=== PATIENT | female | born 1980 | race Caucasian/White ===

== ENCOUNTER → 2020-09-05 08:12 | Outpatient (BNVA) | payer OTHER, SELFPAY | PROVIDERS: PCP Family Medicine; Referring Provider Family Medicine; Visit Provider Physician Assistant | DX: E66.9 Obesity, unspecified (principal); Z68.35 Body mass index [BMI] 35.0-35.9, adult; Z88.8 Allergy status to other drugs, medicaments and biological substances; Z79.899 Other long term (current) drug therapy | CPT/HCPCS: 99212; Q3014 ==

== ENCOUNTER → 2020-09-19 08:13 | Outpatient (BNVA) | payer OTHER, SELFPAY | PROVIDERS: PCP Family Medicine; Visit Provider Physician Assistant | DX: E66.9 Obesity, unspecified (principal); Z68.35 Body mass index [BMI] 35.0-35.9, adult | CPT/HCPCS: Q3014 ==

== ENCOUNTER → 2020-10-10 08:11 | Outpatient (BNVA) | payer OTHER, SELFPAY | PROVIDERS: Visit Provider Dietitian, Registered | DX: Z76.89 Persons encountering health services in other specified circumstances (principal) ==

== ENCOUNTER → 2020-11-23 08:45 | Outpatient (BNVA) | payer OTHER, SELFPAY | PROVIDERS: Visit Provider Physician Assistant ==

== ENCOUNTER → 2021-02-15 10:58 | Outpatient (BNVA) | payer OTHER, SELFPAY | PROVIDERS: Visit Provider Physician Assistant | DX: E66.9 Obesity, unspecified (principal); R06.02 Shortness of breath; Z68.34 Body mass index [BMI] 34.0-34.9, adult | CPT/HCPCS: 99212 ==

== ENCOUNTER 2021-02-20 11:06 | Outpatient (REF) | payer OTHER, SELFPAY ==
--- NOTE | ~2021-02-20 | XR_ITS ---
EXAMINATION: XR CHEST, 2 VIEWS CLINICAL INFORMATION: R06.02 - Shortness of breath COMPARISON: 11/25/2019 TECHNIQUE: PA and lateral views of the chest were obtained. FINDINGS: Lungs are clear. No consolidation, pneumothorax, or pleural effusion. Cardiac and mediastinal contours are normal. Pulmonary vasculature is unremarkable. Trachea is midline. Osseous structures are unremarkable. XR/XR chest 2V IMPRESSION: Normal chest radiographs.
--- NOTE | 2021-02-20 11:16 | ECG_ITS ---
Test Reason : R06.02 SOB Blood Pressure : / mmHG Vent. Rate : 087 BPM Atrial Rate : 087 BPM P-R Int : 130 ms QRS Dur : 084 ms QT Int : 348 ms P-R-T Axes : 032 026 018 degrees QTc Int : 418 ms Sinus rhythm with frequent Premature ventricular complexes Otherwise normal ECG When compared with ECG of 25-NOV-2019 12:48, No significant change was found Referred By: Ramonita Faye Electronically Signed By:Tirso Szymanski
[2021-02-20 12:03] LABS: MANUAL DIFF FLAG NO
[2021-02-20 12:13] LABS: Basophils Percent Auto 0.5 % (0-2); Eosinophils Absolute Auto 0.1 X10*3/uL (0.0-0.4); Eosinophils Percent Auto 0.6 % (0-4); Hematocrit 42.8 % (37-47); Hemoglobin 14.3 g/dl (12.0-16.0); Imm Gran Abs Auto 0.02 X10*3/uL (0.00-0.03); Imm Gran Pct Auto 0.2 % (0.0-0.4); Lymphocytes Absolute Auto 2.6 X10*3/uL (1.2-4.9); Lymphocytes Percent Auto 29.8 % (20-40); Mean Corpuscular HGB Conc 33.4 g/dl (31.0-35.0); Mean Corpuscular Hemoglobin 29.3 pg (27.0-33.0); Mean Corpuscular Volume 87.7 fL (80-98); Mean Platelet Volume 11.7 fL (9.4-12.3); Monocytes Absolute Auto 0.7 X10*3/uL (0.1-1.2); Monocytes Percent Auto 7.5 % (2-11); Neutrophils Absolute Auto 5.3 X10*3/uL (2.0-8.3); Neutrophils Percent Auto 61.4 % (45-73); Platelet Count 332 X10*3/uL (160-400); Red Blood Count 4.88 X10*6/uL (4.20-5.50); Red Cell Distribution Width 12.3 % (11.0-16.0); White Blood Count 8.7 X10*3/uL (4.8-10.8)
[2021-02-20 12:44] LABS: Estimated Average Glucose 91 mg/dL; Hemoglobin A1c % 4.8 %
[2021-02-20 12:51] LABS: Alanine Aminotransferase 18 U/L (0-31); Albumin Level 3.9 g/dL (3.5-5.0); Alkaline Phosphatase 90 U/L (39-117); Anion Gap 12 (12-20); Aspartate Amino Transferase 15 U/L (5-31); Bilirubin Total 0.7 mg/dL (0.0-1.0); Blood Urea Nitrogen 10 mg/dL (9-16); C Reactive Protein 1.39 mg/dL (< or = 0.50); Calcium 9.4 mg/dL (8.4-10.2); Carbon Dioxide 24 mmol/L (22-29); Chloride 105 mmol/L (96-108); Cholesterol 255 mg/dL; Estimated Glomerular Filt Rate > 60; Glucose Fasting 91 mg/dL (60-99); HDL Cholesterol 36 mg/dL; Iron 132 mcg/dL (30-160); LDL Cholesterol Calculated 191 mg/dl; Percent Iron Saturation 46 % (15-50); Potassium 4.1 mmol/L (3.3-5.1); Sodium 137 mmol/L (135-145); Total Iron Binding Capacity 285 mcg/dL (228-428); Total Protein 7.5 g/dL (6.5-8.0); Triglycerides 140 mg/dL; Unsaturated Iron Binding 153 ug/dL
[2021-02-20 13:13] LABS: Vitamin B12 519 pg/mL (200-900)
[2021-02-20 13:14] LABS: Ferritin 163 ng/mL (10-250); TSH reflex Free T4 2.53 uIU/mL (0.32-4.0); Vitamin D 25-OH Total 22.7 ng/mL (>30)
[2021-02-21 09:16] LABS: Insulin Level Total 19.8 uIU/mL
[2021-02-22 13:46] LABS: Calcium (PTHI) 9.4 mg/dL (8.6-10.2); PTHI 72 pg/mL (14-64)
[2021-02-23 07:02] LABS: Zinc 114 mcg/dL (60-130)
[2021-02-25 03:21] LABS: Vitamin A 66 mcg/dL (38-98)
[2021-02-26 16:02] LABS: Vitamin B1 11 nmol/L (8-30)
== END 2021-02-20 11:07 | disposition home or self-care (01) ==
LOC: HO.LAB 11:06
PROVIDERS: PCP Family Medicine; Visit Provider Physician Assistant
DX: R06.02 Shortness of breath (principal); I49.3 Ventricular premature depolarization; E66.01 Morbid (severe) obesity due to excess calories
CPT/HCPCS: 36415; 71046; 80053; 80061; 82306; 82607; 82728; 82746; 83036; 83525; 83540; 83970; 84425; 84443; 84590; 84630; 85025; 86140; 93005

== ENCOUNTER → 2021-04-05 14:50 | Outpatient (BNVA) | payer OTHER, SELFPAY | PROVIDERS: PCP Family Medicine; Visit Provider Physician Assistant | DX: E66.9 Obesity, unspecified (principal); Z68.34 Body mass index [BMI] 34.0-34.9, adult | CPT/HCPCS: 99212 ==

== ENCOUNTER 2021-05-03 10:44 | Outpatient (REF) | payer OTHER, SELFPAY ==
[2021-05-04 14:47] LABS: H Pylori Breath Test NOT DETECTED (NOT DETECTED)
== END 2021-05-03 10:45 | disposition home or self-care (01) ==
LOC: HO.LAB 10:44
PROVIDERS: PCP Family Medicine; Visit Provider Physician Assistant
DX: F50.81 Binge eating disorder (principal); E66.9 Obesity, unspecified; Z68.33 Body mass index [BMI] 33.0-33.9, adult; E55.9 Vitamin D deficiency, unspecified; Z71.3 Dietary counseling and surveillance
CPT/HCPCS: 36415; 82306; 83013; 99212

== ENCOUNTER → 2021-05-31 10:05 | Outpatient (BNVA) | payer OTHER, SELFPAY | PROVIDERS: PCP Family Medicine; Visit Provider Surgery | DX: E66.9 Obesity, unspecified (principal); Z68.32 Body mass index [BMI] 32.0-32.9, adult | CPT/HCPCS: 99212 ==

== ENCOUNTER → 2021-07-12 12:34 | Outpatient (BNVA) | payer OTHER, SELFPAY | PROVIDERS: PCP Family Medicine; Visit Provider Surgery | DX: E66.9 Obesity, unspecified (principal); Z68.32 Body mass index [BMI] 32.0-32.9, adult | CPT/HCPCS: 99212 ==

== ENCOUNTER → 2021-08-09 08:57 | Outpatient (BNVA) | payer OTHER, SELFPAY | PROVIDERS: PCP Family Medicine; Visit Provider Surgery | DX: E66.9 Obesity, unspecified (principal); Z68.32 Body mass index [BMI] 32.0-32.9, adult | CPT/HCPCS: 99212 ==

== ENCOUNTER → 2021-09-11 08:11 | Outpatient (BNVA) | payer OTHER, SELFPAY | PROVIDERS: PCP Family Medicine; Visit Provider Physician Assistant Surgical | DX: E66.9 Obesity, unspecified (principal); Z3A.32 32 weeks gestation of pregnancy | CPT/HCPCS: 99212 ==

== ENCOUNTER → 2021-09-20 07:42 | Outpatient (BNVA) | payer OTHER, SELFPAY | PROVIDERS: PCP Family Medicine; Visit Provider Surgery ==

== ENCOUNTER → 2021-09-25 08:10 | Outpatient (BNVA) | payer OTHER, SELFPAY | PROVIDERS: PCP Family Medicine; Visit Provider Dietitian, Registered | DX: E66.9 Obesity, unspecified (principal); Z68.32 Body mass index [BMI] 32.0-32.9, adult | CPT/HCPCS: 97803 ==

== ENCOUNTER 2021-10-09 07:48 | Outpatient (REF) | payer OTHER, SELFPAY ==
--- NOTE | ~2021-10-09 | FL_ITS ---
EXAMINATION: XR FLUOROSCOPY UPPER GI WITH AIR CLINICAL INFORMATION: Obesity COMPARISON: None TECHNIQUE: Upper GI was performed using thin and thick barium and effervescent granules FINDINGS: Esophageal motility is normal. No hernia is seen. There is gastroesophageal reflux. The stomach and duodenum are normal-appearing. No fold thickening, mass, stricture or ulcer is seen. FLUOROSCOPY TIME: 0.6 minutes DOSE AREA PRODUCT: 7.8 Carter per centimeter squared. 17 saved fluoroscopic images and one overhead image FL/FL upper GI w air IMPRESSION: Gastroesophageal reflux otherwise unremarkable exam.
--- NOTE | ~2021-10-09 | US_ITS ---
EXAMINATION: US COMPLETE ABDOMEN WITH LIVER ELASTOGRAPHY CLINICAL INFORMATION: Obesity COMPARISON: 08/12/2014 TECHNIQUE: Real-time imaging of the abdominal viscera. Noninvasive ultrasound liver fibrosis assessment is performed using Maricel ElastPQ point quantification shear wave elastography (pSWE) with a C5-2 MHz transducer. Multiple elastography samples are obtained. FINDINGS: PANCREAS: Normal. The visualized pancreatic head and body are normal in appearance. The remainder of the pancreas is obscured from visualization by the overlying bowel gas. ABDOMINAL AORTA: The proximal, middle, and distal aortic segments are normal in caliber. INFERIOR VENA CAVA: Visualized portions are normal. LIVER: Normal. The liver demonstrates normal size, contour and echogenicity. No focal lesion or intrahepatic biliary duct dilatation. The right lobe measures 15.5 cm in length. The left lobe measures 10.6 cm in length. Portal flow is towards the liver (hepatopetal). Shear wave liver elastography median stiffness is 1.63 m/s (reference: normal median stiffness is 1.3 m/s or less). IQR/median stiffness to assess sampling precision is 0.08 (reference: good quality data set is IQR/median stiffness of 0.15 or less). GALLBLADDER: There is a gallbladder wall polyp noted measuring 0.5 x 0.3 x 0.4 cm. This was nonvisualized on the prior. The gallbladder is physiologically distended without evidence of stones, sludge, wall thickening or pericholecystic fluid. COMMON BILE DUCT: Normal in caliber measuring 0.4 cm in diameter. RIGHT KIDNEY: Normal. No hydronephrosis. No renal calculi or focal parenchymal lesions. The kidney measures 10.3 cm in maximum dimension. LEFT KIDNEY: Normal. No hydronephrosis. No renal calculi or focal parenchymal lesions. The kidney measures 10.6 cm in maximum dimension. SPLEEN: Normal. The spleen measures 9.3 cm in maximum dimension. FREE FLUID: None. US/US abdomen comp w elastography IMPRESSION: 1. Gallbladder wall polyp measuring up to 0.5 cm. This was not previously visualized. Suggest follow-up ultrasound in 6-12 months. 2. Liver elastography: In the absence of other known clinical signs, measurements rule out compensated advanced chronic liver disease. If there are known clinical signs, further testing may be needed for confirmation. REFERENCE: Society of Radiologists in Ultrasound Liver Stiffness Thresholds (2020): LIVER STIFFNESS THRESHOLDS: *Liver Stiffness equal or less than 1.3 m/s: High probability of being normal. *Liver Stiffness less than 1.7 m/s: In the absence of other known clinical signs, rules out compensated advanced chronic liver disease. *Liver Stiffness 1.7-2.1 m/s: Suggestive of compensated advanced chronic liver disease but need further test for confirmation. *Liver Stiffness over 2.1 m/s: Rules in compensated advanced chronic liver disease. *Liver Stiffness over 2.4 m/s: Suggestive of clinically significant portal hypertension. QUALITY OF DATA SET: *IQR/Median value equal or less than 0.15 implies a quality data set. *IQR/Median value over 0.15 implies a poor quality data set. SIGNIFICANT CHANGE FROM PRIOR EXAM: Significant change if liver stiffness measurement is 10% or greater from prior exam. OTHER CONSIDERATIONS: The stage of liver fibrosis may be overestimated in the setting of acute hepatitis, liver inflammation, elevated liver function tests, hepatic vascular congestion, obstructive cholestasis, non-fasting state, and infiltrative diseases such as amyloidosis and lymphoma. In some patients with NAFLD, the liver stiffness thresholds for compensated advanced chronic liver disease may be lower. In causes other than viral hepatitis and NAFLD, liver stiffness thresholds are not well established.
== END 2021-10-09 07:49 | disposition home or self-care (01) ==
LOC: HO.US 07:48
PROVIDERS: Visit Provider Surgery
DX: E66.9 Obesity, unspecified (principal); K21.9 Gastro-esophageal reflux disease without esophagitis; K82.4 Cholesterolosis of gallbladder
CPT/HCPCS: 74246; 76705; 76981

== ENCOUNTER → 2021-10-11 07:36 | Outpatient (BNVA) | payer OTHER, SELFPAY | PROVIDERS: PCP Family Medicine; Visit Provider Surgery | DX: E66.9 Obesity, unspecified (principal); Z68.32 Body mass index [BMI] 32.0-32.9, adult; G47.33 Obstructive sleep apnea (adult) (pediatric); I10 Essential (primary) hypertension | CPT/HCPCS: J2250; J3010 ==

== ENCOUNTER 2021-10-24 06:02 | Inpatient (IN) | payer OTHER, SELFPAY ==
[2021-10-15 13:39] VITALS: BMI 32.5
[2021-10-18 07:48] LABS: MANUAL DIFF FLAG NO
[2021-10-18 08:42] LABS: Basophils Percent Auto 0.4 % (0-2); Eosinophils Absolute Auto 0.2 X10*3/uL (0.0-0.4); Eosinophils Percent Auto 2.2 % (0-4); Hematocrit 40.8 % (37.0-47.0); Hemoglobin 13.3 g/dl (12.0-16.0); Imm Gran Abs Auto 0.02 X10*3/uL (0.00-0.03); Imm Gran Pct Auto 0.3 % (0.0-0.4); Lymphocytes Absolute Auto 2.3 X10*3/uL (1.2-4.9); Lymphocytes Percent Auto 29.4 % (20-40); Mean Corpuscular HGB Conc 32.6 g/dl (31.0-35.0); Mean Corpuscular Hemoglobin 29.5 pg (27.0-33.0); Mean Corpuscular Volume 90.5 fL (80.0-98.0); Mean Platelet Volume 11.6 fL (9.4-12.3); Monocytes Absolute Auto 0.7 X10*3/uL (0.1-1.2); Neutrophils Absolute Auto 4.5 x10*3/uL (2.0-8.3); Neutrophils Percent Auto 58.7 % (45-73); Platelet Count 268 X10*3/uL (160-400); Red Blood Count 4.51 X10*6/uL (4.20-5.50); Red Cell Distribution Width 12.5 % (11.0-16.0); White Blood Count 7.7 X10*3/uL (4.8-10.8)
[2021-10-18 08:49] LABS: Estimated Average Glucose 97 mg/dL
[2021-10-18 08:51] LABS: Prothrombin Time 11.3 SEC (9.9-13.0)
[2021-10-18 08:54] LABS: Partial Thromboplastin Time 34.5 SEC (24.1-38.0)
[2021-10-18 09:13] LABS: Alanine Aminotransferase 21 U/L (0-31); Albumin Level 3.8 g/dL (3.5-5.0); Alkaline Phosphatase 74 U/L (39-117); Anion Gap 11 (12-20); Aspartate Amino Transferase 22 U/L (5-31); Bilirubin Total 0.3 mg/dL (0.0-1.0); Blood Urea Nitrogen 15 mg/dL (9-16); C Reactive Protein 1.34 mg/dL (< or = 0.50); Calcium 9.2 mg/dL (8.4-10.2); Carbon Dioxide 23 mmol/L (22-29); Chloride 109 mmol/L (96-108); Cholesterol 244 mg/dL; Creatinine Clr Calc Pharmacy 97.4; Estimated Glomerular Filt Rate > 60; Glucose Random 92 mg/dL (60-115); HDL Cholesterol 31 mg/dL; LDL Cholesterol Calculated 187 mg/dl; Potassium 4.4 mmol/L (3.3-5.1); Sodium 139 mmol/L (135-145); Total Protein 7.4 g/dL (6.5-8.0); Triglycerides 130 mg/dL
[2021-10-18 09:34] LABS: Insulin 15 uU/mL (2-29); TSH reflex Free T4 2.26 uIU/mL (0.32-4.0)
--- NOTE | 2021-10-19 23:56 | P.HPSUR_ITS ---
Pre-Procedural Eval Section A Date of Service: 10/19/21 The patient is an INPATIENT: Yes The History & Physical has been completed within 30 days and I have reviewed it.: No Section B Chief Complaint: obesity Relevant Family History (Specify if Yes): No Relevant Social History: None Present Medications: None Medical History: No relevant PMH History of Previous Operations: No relevant previous surgery Allergies: Allergies Allergy/AdvReac Type Severity Reaction Status Date / Time prochlorperazine Allergy Intermediate jittery Verified 10/15/21 10:34 [From Compazine] Review of Systems Sugical H&P ROS: Negative: Constitution, Cardiovascular, Respiratory, Neurological, Psychiatric, Hem-Onc, Allergic/Immunologic, Gastrointestinal, Genitourinary, Musculoskeletal, Integumentary, Endocrine and Eyes/Ears/Nos e/Throat Exam Surgical H&P Exam: Normal: HEENT, Normal: Heart, Normal: Lungs, Normal: Extremities, Normal: Abdomen, Normal: Skin and Normal: Neurological Plan Diagnosis/Plan: Unchanged I have reviewed the history and physical and performed a pertinent physical examination on my patient. No changes have occurred unless specified.
--- NOTE | 2021-10-23 10:15 | P.CONAN_ITS ---
Documented by User: Magdalena Pimentel NP 10/23/21 10:17 HPI - Anesthesia Eval Consult details Narrative: 41yo F for Gastrectomy Sleeve,EGD,possible diaphragmatic hernia,possible ventral hernia,possible open *No blood products d/t methodist belief* [facility] Active Problems Active Problems: All Active Problems (Updated 10/15/21 @ 13:42 by Soheila Rosales RN) BMI 35.0-35.9,adult (Acute) Binge eating disorder (Acute) BMI 33.0-33.9,adult (Acute) BMI 32.0-32.9,adult (Acute) Hypertension (Acute) PRANAY (obstructive sleep apnea) (Acute) Obesity (BMI 30-39.9) (Acute) History of alcohol dependence (Acute) ADHD (Acute) Anxiety (Acute) Vitamin D deficiency (Acute) Arthritis (Acute) Past Medical History Medical History (Updated 10/15/21 @ 13:42 by Soheila Rosales RN) ADHD Anxiety Arthritis Carpal tunnel syndrome COVID-19 vaccine series completed Depression GERD (gastroesophageal reflux disease) History of alcohol dependence Hyperlipidemia Obesity (BMI 30-39.9) PRANAY (obstructive sleep apnea) Patient is Congregational PVC (premature ventricular contraction) Tennis elbow Vitamin D deficiency Family History Family History Father Depression Mother Hypothyroidism Diabetes Brother No problems noted. Brother No problems noted. Brother No problems noted. Brother No problems noted. Brother No problems noted. Sister No problems noted. Sister No problems noted. Sister No problems noted. Daughter No problems noted. Daughter No problems noted. Surgical History Surgical History (Updated 10/15/21 @ 13:38 by Soheila Rosales RN) Hx of section Hx of local excision of skin lesion Social History Social History Household Members Other:: 2 children-oldest 16 y.o. 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 If so, by whom?: No Are you DNR?: No Advance Directives: No Advance Directives Information Provided: Yes (informational brochure mailed) Advance Directives on File: No Recently lost weight without trying: No Eating poorly because of decreased appetite: No Nutrition Risks: No Nutritional Risk Patient : No FDLMP: N/A due to BCP : No Poor oral hygiene: No Meds Allergies Allergy/AdvReac Type Severity Reaction Status Date / Time prochlorperazine Allergy Intermediate jittery Verified 10/15/21 10:34 [From Compazine] Home Medications Medication Instructions Recorded Confirmed Last Taken Type L norgest/E estradiol-E estrad 1 tab PO DAILY 08/01/20 10/15/21 Unknown History 0.15 mg-30 mcg (84)/10 mcg(7) tabs,3mos (Seasonique) lorazepam 0.5 mg tablet 0.5 mg PO DAILY PRN 08/01/20 10/15/21 Unknown History melatonin 5 mg capsule 5 mg PO BEDTIME 02/15/21 10/15/21 Unknown History venlafaxine 150 mg 150 mg PO DAILY 02/15/21 10/15/21 Unknown History capsule,extended release 24 hr isotretinoin 40 mg capsule 40 mg PO BID 09/20/21 10/15/21 Unknown History (Accutane) pregabalin 50 mg capsule (Lyrica) 50 mg PO BID 10/11/21 10/15/21 Unknown History dextroamphetamine-amphetamine ER 20 mg PO QAM 10/15/21 10/15/21 Unknown History 20 mg 24hr capsule,extend release Exam Exam Date and Time: October 23, 2021 1015 Height,Weight and Vital Signs: Height 5 ft 2 in Weight 80.739 kg Pertinent Lab Results Pertinent Lab Results: Laboratory Tests 10/18/21 10/18/21 10/18/21 07:40 07:40 07:40 WBC 7.7 RBC 4.51 Hgb 13.3 Hct 40.8 MCV 90.5 MCH 29.5 MCHC 32.6 RDW 12.5 Plt Count 268 MPV 11.6 Immature Gran % (Auto) 0.3 Neut % (Auto) 58.7 Lymph % (Auto) 29.4 [place] % (Auto) 9.0 Eos % (Auto) 2.2 Baso % (Auto) 0.4 Lymph # (Auto) 2.3 [place] # (Auto) 0.7 Eos # (Auto) 0.2 Baso # (Auto) 0.0 Abs Immat Gran (auto) 0.02 Absolute Neuts (auto) 4.5 Absolute Nucleated RBC 0.000 Nucleated RBC % (auto) 0.0 PT 11.3 INR 1.0 APTT 34.5 Sodium 139 Potassium 4.4 Chloride 109 H Carbon Dioxide 23 Anion Gap 11 L BUN 15 Creatinine 0.74 Estim Creat Clear Calc 97.4 Estimated GFR > 60 Random Glucose 92 Estimat Average Glucose Hemoglobin A1c % Insulin Level 15 Calcium 9.2 Total Bilirubin 0.3 AST 22 D ALT 21 Alkaline Phosphatase 74 C-Reactive Protein 1.34 H Total Protein 7.4 Albumin 3.8 Triglycerides 130 Cholesterol 244 LDL Cholesterol, Calc 187 HDL Cholesterol 31 TSH 2.26 Blood Type Antibody Screen 10/18/21 10/18/21 07:40 07:40 WBC RBC Hgb Hct MCV MCH MCHC RDW Plt Count MPV Immature Gran % (Auto) Neut % (Auto) Lymph % (Auto) [place] % (Auto) Eos % (Auto) Baso % (Auto) Lymph # (Auto) [place] # (Auto) Eos # (Auto) Baso # (Auto) Abs Immat Gran (auto) Absolute Neuts (auto) Absolute Nucleated RBC Nucleated RBC % (auto) PT INR APTT Sodium Potassium Chloride Carbon Dioxide Anion Gap BUN Creatinine Estim Creat Clear Calc Estimated GFR Random Glucose Estimat Average Glucose 97 Hemoglobin A1c % 5.0 Insulin Level Calcium Total Bilirubin AST ALT Alkaline Phosphatase C-Reactive Protein Total Protein Albumin Triglycerides Cholesterol LDL Cholesterol, Calc HDL Cholesterol TSH Blood Type A Positive Antibody Screen NEGATIVE Narrative Narrative: EKG 01/2021 Vent. Rate : 087 BPM ? ? Atrial Rate : 087 BPM ?? P-R Int : 130 ms? QRS Dur : 084 ms ? ? QT Int : 348 ms ? ? ? P-R-T Axes : 032 026 018 degrees ?? QTc Int : 418 ms ? Sinus rhythm with frequent Premature ventricular complexes Otherwise normal ECG When compared with ECG of 25-NOV-2019 12:48, No significant change was found Assessment and Plan Assessment Anesthesia Assessment: Chart Reviewed Documented by User: Car Tan 10/24/21 09:35 HPI - Anesthesia Eval Consult details Narrative: 41yo F for Gastrectomy Sleeve,EGD,possible diaphragmatic hernia,possible ventral hernia,possible open Discussed transfusion , patient will accept blood products as a last resort if needed . [facility] Past Medical History Medical History (Updated 10/15/21 @ 13:42 by Soheila Rosales RN) ADHD Anxiety Arthritis Carpal tunnel syndrome COVID-19 vaccine series completed Depression GERD (gastroesophageal reflux disease) History of alcohol dependence Hyperlipidemia Obesity (BMI 30-39.9) PRANAY (obstructive sleep apnea) Patient is Congregational PVC (premature ventricular contraction) Tennis elbow Vitamin D deficiency Functional capacity: independent ambulation Family History Family History Father Depression Mother Hypothyroidism Diabetes Brother No problems noted. Brother No problems noted. Brother No problems noted. Brother No problems noted. Brother No problems noted. Sister No problems noted. Sister No problems noted. Sister No problems noted. Daughter No problems noted. Daughter No problems noted. Family history of problems with anesthesia: Yes (Sister possible difficult airway ) Surgical History Surgical History (Updated 10/15/21 @ 13:38 by Soheila Rosales RN) Hx of section Hx of local excision of skin lesion History of Problems with Anesthesia: No Social History Social History Household Members Other:: 2 children-oldest 16 y.o. 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 If so, by whom?: No Are you DNR?: No Advance Directives: No Advance Directives Information Provided: Yes (informational brochure mailed) Advance Directives on File: No Recently lost weight without trying: No Eating poorly because of decreased appetite: No Nutrition Risks: No Nutritional Risk Patient : No FDLMP: N/A due to BCP : No Poor oral hygiene: No Meds Allergies Allergy/AdvReac Type Severity Reaction Status Date / Time prochlorperazine Allergy Intermediate jittery Verified 10/15/21 10:34 [From Compazine] Home Medications Medication Instructions Recorded Confirmed Last Taken Type L norgest/E estradiol-E estrad 1 tab PO DAILY 08/01/20 10/15/21 Unknown History 0.15 mg-30 mcg (84)/10 mcg(7) tabs,3mos (Seasonique) lorazepam 0.5 mg tablet 0.5 mg PO DAILY PRN 08/01/20 10/15/21 Unknown History melatonin 5 mg capsule 5 mg PO BEDTIME 02/15/21 10/15/21 Unknown History venlafaxine 150 mg 150 mg PO DAILY 02/15/21 10/15/21 Unknown History capsule,extended release 24 hr isotretinoin 40 mg capsule 40 mg PO BID 09/20/21 10/15/21 Unknown History (Accutane) pregabalin 50 mg capsule (Lyrica) 50 mg PO BID 10/11/21 10/15/21 Unknown History dextroamphetamine-amphetamine ER 20 mg PO QAM 10/15/21 10/15/21 Unknown History 20 mg 24hr capsule,extend release Exam Airway Mallampati Class: II TM Dist: >3cm Neck ROM: Full Loose/Missing/Broken Teeth: Yes Heart: rrr Lungs: bl breath sounds Assessment and Plan Final Anesthetic Review Family History of Problems with Anesthesia: Yes (Sister possible difficult airway ) History of Problems with Anesthesia: No NPO: Yes ASA Class: III Final Preanesthetic Review: Anes Risks/Benef Reviewed Patient Risk: Intermediate Procedure Risk: Intermediate Anesthetic Plan Anesthetic Plan: GA Disposition: Standard PACU
[2021-10-24] VITALS (17 sets, daily range): BP systolic 123–161; BP diastolic 74–96; PULSE 73–98; RESP 15–20; TEMP 36.1–37; O2SAT 95–100
[2021-10-24 06:29] LABS: UPreg QC Valid YES; Urine Pregnancy NEGATIVE (NEGATIVE)
[2021-10-24] MEDS: Lactated Ringers 1,000 ML 999 ML IV (06:30)
[2021-10-24 06:44] LABS: COVID-19 Test Negative (Negative); IDNOW Serial# 9DD0AD1C
--- NOTE | 2021-10-24 10:13 | P.BOP_ITS ---
Brief Operative Note Date of Service: 10/24/21 Pre-op diagnosis: Severe obesity with comorbidities Post-op diagnosis: same Procedure: INITIAL PATIENT BMI ON PRESENTATION AT OUR OFFICE: 36.4 kg/m2 LAST BMI BEFORE SURGERY: 32.4 kg/m2 COMORBIDITIES: ADHD, GERD, sleep apnea, acne, depression, anxiety, insomnia, hyperlipidemia, DJD, gallbladder polyp The patient participated in an intensive weekly lifestyle ?intervention and exercise program during which the patient ?has lost between the initial office visit and the last preoperative visit 23 lbs, or 11.57% of initial actual body weight. The patient met the BMI-criteria for bariatric surgery based on the BMI on initial presentation. The patient should not be penalized for achieving such weight loss because ?it is not sustainable long-term without surgical intervention and it was achieved in preparation for bariatric surgery ?under my direction and based on my published research ([email or web address] and? [email or web address])[email or web address]/pdf ) ?that a 10% preoperative weight loss improves long-term weight loss after surgery and reduces perioperative complications.? Insurance carriers such as [facility] have endorsed my recommendations ?and have included in their policies criteria to include a 10% preoperative weight loss requirement. PROCEDURE: Esophago-gastroscopy, laparoscopic sleeve gastrectomy and laparoscopic gastropexy INDICATIONS: This is a 41 year-old female who was electively scheduled for laparoscopic, possibly open sleeve gastrectomy. The risks and complications of the procedure were discussed with the patient in advance, particularly the possibility of ; pulmonary embolism; staple line leak; bleeding; GERD; cardiac, pulmonary, or renal complications; as well as long-term problems such as insufficient weight loss, vitamin deficiency, strictures, or ulcers. The patient understood all the risks, and was in agreement to proceed with surgery. DESCRIPTION OF PROCEDURE: After informed consent was obtained from the patient, the patient was given preoperative antibiotics, and was transferred to the operating room. After successful induction of general anesthesia, pneumatic compressive devices were placed on both lower extremities. An upper endoscopy was performed next. The oropharynx and esophagus appeared to be within normal limits. There was no diaphragmatic hernia present consistent with the findings of the preoperative upper GI. The stomach was entered. Then after all fluid and air were suctioned and the stomach was fully decompressed, the scope was withdrawn and secured in the mid esophagus. The patient was then prepped and draped in the usual sterile manner, and abdominal access was established at the right upper quadrant with the Jude technique. A 12 mm blunt port was inserted, and the abdomen was insufflated with CO2 to a pressure of 15 mmHg. Under direct visualization, additional ports were placed, specifically two 5 mm Versi-step ports to the left upper quadrant, and a 5 mm Versi-Step port to the right upper quadrant. 1% lidocaine plain was used to infiltrate all port sites as well as all fascia defects. Following that, the patient was placed in a steep reverse Trendelenburg position. An additional 5 mm port was placed to the right flank for the Mediflex retractor that was used to retract the left lobe of the liver. The gastro-esophageal fat pad was opened with the ultrasonic device (Thunderbeat, Olympus) and the anterior esophagus and hiatus were exposed. The angle of His was opened with the ultrasonic device the fundus of the stomach from any diaphragmatic and splenic attachments. I then opened the gastrocolic ligament between the transverse colon and the greater curvature of the stomach with the ultrasonic device to enter the lesser sac and facilitate the ligation of the short gastric vessels. I started at a mid-point along the greater curvature and using the Thunderbeat, all short gastric vessels were divided all the way to the angle of His until the left trevor was completely dissected at its entirety. I then divided the gastro-colic ligament distally to a distance of about 3-4 cm proximal to the esophagus.? The stomach was then divided transversely with one Endo RENEA-45 purple, two RENEA- 45 orange loads and three RENEA-60 articulating orange loads using the AEON stapler and loads. Every effort was made that the gastric sleeve had a tubular shape and an even caliber throughout. Once the sleeve resection was completed, the staple line of the gastric sleeve was reinforced with Hemoclips. The resected stomach was retrieved without difficulty from the Jude port. A gastropexy was then performed in order to prevent postoperative GERD and partial gastric volvulus. Several interrupted 2.0 Surgidac sutures were placed between the sleeve's staple line and the previously divided greater omentum and gastro-colic ligament using the Endo-Stitch device. ?An upper endoscopy was performed. There was no narrowing at the GE junction. The scope was easily advanced all the way to the pylorus which was clearly visualized. There was no narrowing anywhere and the sleeve's caliber was even throughout. The sleeve's staple line was inspected and there was no evidence of ischemia, bleeding or dehiscence. At that point the gastroscope was withdrawn from the patient?s mouth while we were decompressing the bowel and the stomach from any remaining air. I looked into the lesser sac to see how the sleeve was situating and it was situating well. There was no bleeding from the staple line, spleen, or short gastric vessels. The Mediflex retractor was removed, and the undersurface of the liver was inspected and there was no bleeding. The patient was placed in supine position. I closed the fascial defect of the 12 mm port site with a figure of eight #1 Polysorb suture. Then 100 cc 0.25 % Marcaine plain with 10 mg of Dexamethasone were used to infiltrate the fascial closure as well as all skin incisions. At this point, the abdomen was deflated, all ports were removed under direct vision, and no bleeding was noted from any of the port sites. The skin incisions were irrigated with saline and were closed with 4-0 absorbable monofilament sutures. Steri-Strips and OpSites were used to cover all incisions. The patient was extubated and was transferred in stable condition to the recovery room for further care. I was present and performed all aldana parts of the procedure. Ms. Zurita was the engineer first assistant. There were no residents to assist with this case. Rangel Howard MD, PhD, FACS Surgeon: Eddie Howard MD Anesthesia: GETA, local and other (TAP block) Was an Guitar Repair Technician used for this Procedure?: Yes Guitar Repair Technician: Abel Barillas Estimated blood loss (mL): 10 IV fluids (mL): 2,800 Urine output (mL): 0 (No Dasilva to record) Pathology: other (Stomach) Condition: stable Disposition: PACU
--- NOTE | 2021-10-24 10:21 | P.DS_ITS ---
DS: Providers Provider Date of Service: 10/25/21 Date of admission: 10/24/21 06:02 Primary care physician: Unknown Physician DS: Summary Hospital Course Hospital Course: ADMITTING DIAGNOSIS: morbid obesity, htn, ADHD, depression, anxiety, PRANAY ? DISCHARGE DIAGNOSIS: same, s/p laparoscopic sleeve gastrectomy ? PAST SURGICAL HISTORY: cesarian section ? PROCEDURE: upper endoscopy, laparoscopic sleeve gastrectomy ? DISCHARGE SUMMARY: ? History of Present Illness: ? The patient is a?41 year-old woman with a BMI of?35.5 kg/m2 and associated co-morbidities as described above. The patient had extensive work-up,lost?21.6 lbs preoperatively and was electively scheduled for laparoscopic, possible open sleeve gastrectomy and gastropexy. Risks and complications of the surgery were discussed with the patient in advance, particularly the possibility of , pulmonary embolism, anastomotic leak, bleeding, bowel injury, GERD, cardiac, renal or pulmonary complications. The patient understood all the risks and was in agreement with the surgical plan. ? Hospital Course: ? The patient underwent an uneventful laparoscopic sleeve gastrectomy with gas tropexy on the day of admission. Postoperatively, the patient was transferred to the surgical floor. The patient received IV Acetaminophen and IV dilaudid for pain control. Patient was started on bariatric phase 1 diet POD #0. On postoperative day one, the patient was feeling well without nausea, vomiting, fevers, or tachycardia. The patient had some mild incisional pain and the abdomen was soft. ? On the morning of postoperative day one, the patient was continued on 1 ounce of water or ice every half hour. During the day, the patient did fairly well, having some incisional pain, but able to ambulate adequately and to tolerate liquids well. ? Since the patient is doing well, we decided that the patient was ready to be discharged. The patient was given instructions to follow-up with me next week and to call my office for any fever over 101, persistent abdominal pain, nausea, vomiting, GERD, symptoms of DVT such as calf tenderness, or leg swelling, or pulmonary embolism such as chest pain or shortness of breath. The patient was also instructed to drink 40-60 ounces of liquids per day using the 1-ounce cups. The patient had been given prescriptions for Tylenol for pain, Zofran prn for nausea, and pantoprazole and carafate previously. The patient was encouraged to ambulate and use the incentive spirometer. The patient was allowed to shower, but no baths, and encouraged to stay active at home. All of these instructions were given to the patient personally. All questions were answered and the patient understood all instructions, the instructions were also given to the patient in print. Status at Discharge Functional status at discharge: independent ambulation Time Spent with Patient Time attestation: Total time spent providing and/or coordinating discharge services: Discharge coordination time: Less than 30 minutes Quality: Stroke Does the patient have a stroke diagnosis?: No Physical Exam Vital Signs: Vital Signs: Last Vital Signs Temp 97.5 F 10/24/21 10:11 Pulse 79 10/24/21 10:16 Resp 16 10/24/21 10:16 BP 128/74 10/24/21 10:16 Pulse Ox 100 10/24/21 10:16 BMI result Body Mass Index 32.5 DS: Data Data Completed and Pending Pending studies at discharge: Pending at discharge 10/24/21 09:53 Surgical [PTH] Routine Labs on day of discharge: Laboratory Results - last 24 hr 10/24/21 10/24/21 06:10 06:10 Urine Test NEGATIVE COVID-19 ([facility]) Negative COVID-19 Clin Com See Note Discharge Plan Discharge Patient Disposition: Home, Self-Care Discharge Diagnosis: s/p laparoscopic sleeve gastrectomy Referrals: Physician,Unknown J [Primary Care Provider] - 1 Week Discharge Medications: Continued dextroamphetamine-amphetamine 20 mg capsule,extended release 24hr 20 mg PO QAM RF: 0 venlafaxine 150 mg capsule,extended release 24hr 150 mg PO DAILY RF: 0 lorazepam 0.5 mg tablet 0.5 mg PO DAILY PRN (Reason: Anxiety) RF: 0 pantoprazole 40 mg tablet,delayed release (DR/EC) 40 mg PO DAILY Qty: 30 RF: 2 sucralfate 100 mg/mL suspension 10 ml PO BID Qty: 400 RF: 2 ondansetron HCl [Zofran] 4 mg tablet 4 mg PO Q12H Qty: 20 RF: 0 Held melatonin 5 mg capsule 5 mg PO BEDTIME RF: 0 Hold Instructions: until discussed with Dr Lee Guerra norgest/e.estradiol-e.estrad [Seasonique] 0.15 mg-30 mcg (84)/10 mcg (7) tablets,dose pack,3 month 1 tab PO DAILY RF: 0 Hold Instructions: until discussed with Dr Howard isotretinoin [Accutane] 40 mg capsule 40 mg PO BID RF: 0 Hold Instructions: until discussed with Dr Howard pregabalin [Lyrica] 50 mg capsule 50 mg PO BID RF: 0 Hold Instructions: unitl discussed with Dr Howard Discontinued hydrochlorothiazide 12.5 mg tablet 12.5 mg PO DAILY Qty: 30 RF: 2 polyethylene glycol 3350 [Miralax] 17 gram powder in packet 17 g PO DAILY Qty: 14 RF: 0 No Action hydrochlorothiazide 12.5 mg capsule 12.5 mg PO DAILY RF: 0 Discharge Orders: Discharge Order (Routine); Ordered 10/25/21 Ordered By: Iris Zurita Activity on Discharge: No heavy lifting Stand Alone Forms: Patient Portal Discharge page Care Plan Goals: weight loss Health Concerns: obesity Plan of Treatment: No tub baths, sex or returning to work until discussed at first post op appointment. No exercise, alcohol, tobacco or illegal drug use. Continue to use incentive spirometer hourly while awake. Walk in home for 5- 10 minutes every 2 hours during the first week. Follow all instructions in the bariatric handbook and call with any questions.Discharge Instructions 1. Please call your doctor or come back to the emergency room should any new symptoms arise. 2. You will receive a courtesy call from [facility] 24-48 hours after discharge. 3. Activity: abstain from alcohol, practice limited stair climbing, no bending, no driving, no exercise, no illicit substances, no lifting, no sex, no tub bath, no work. 4. Diet: continue as discussed with Dr. Howard. 5. Dressing Change/Wound Care: Your incision is covered by clear bandages and guaze underneath. If the area is tender, you may apply an ice pack for short intervals (no more than 20 minutes on, followed by at least 20 minutes off). Do not apply heat. Do not use creams, lotions, or topical antibiotics unless instructed to do so by your surgeon. These can cause infection or allergic reaction. 6. Call your doctor if: - Your temperature exceeds 101.5 F - You experience excessive pain or swelling - You have an unexpected reaction to medication - You have excessive bleeding - You experience continued vomiting/nausea - Your incision begins to separate - Your incision shows signs of infection such as increased redness, swelling, excessive pain, heat, or drainage (light blood or clear fluid is normal) 7. General instructions: No lifting greater than 5 lbs for the next 4 weeks. No driving within 24 hours of taking narcotic pain medications. If you do not move your bowels in the next 2 days, please take milk of magnesia over the counter. Please follow the post op diet and do not advance your diet until you are seen in the office in about 2 weeks. Please walk around your home every hour or two to prevent blood clots from forming in your legs. You do not need to wake from sleeping to walk. Please sleep in a bed or couch to prevent kinking at the hips and knees. Please take your incentive spirometer (your lung irrigation manager) home with you and use it for the next few days to prevent pneumonias. You may shower, no hot tubs, baths or swimming pools. Please call the office with any questions or concerns such as increasing abdominal pain, fever, chills, shortness of breath, chest pain, leg pain or swelling, or redness or drainage from your incisions. Please stay on stage 3 diet which includes sugar free clear liquids such as ice pops and jello and broth and crystal light. Avoid all carbonation. Please drink 3 protein shakes with at least 25-30 grams of protein daily or 3 of the Celebrate 4:1 shakes which can be purchased in our office. The Celebrate shakes have all of the bariatric vitamins you need if you consume these shakes. If you are drinking other protein shakes, you will need to purchase the Celebrate multivitamins and calcium that we provide in the office (they will provide all the vitamins you need). Please make sure you are consuming at least 40-60 ounces of water in addition to your 3 protein shakes daily. Do not hesitate to contact the office with any questions at . The patient's medical history has been reviewed and they are considered low risk for post op DVT and therefore DVT prophylaxis is not considered necessary. Travel after surgery was reviewed. The patient has not disclosed any travel plans during the first 30 days after surgery and they have been advised that within the first 30 days after surgery any bus, plane, train or car travel over 2 hours in duration is contraindicated due to the possibility of developing blood clots from immobility. Any travel, needs to include periods of ambulation of 10 minutes in duration every 2 hours.? The patient was instructed to discuss any plans for travel during this period with their bariatric surgeon. Assessment: stable s/p laparoscopic sleeve gastrectomy Discharge Date/Time: 10/25/21 10:04
[2021-10-24] MEDS: Famotidine/PF 20 MG/2 ML VIAL IVPUSH ×2 (10:30→20:39)
[2021-10-24 10:40] LABS: Hematocrit 36.9 % (37.0-47.0); Hemoglobin 12.4 g/dl (12.0-16.0)
[2021-10-24] MEDS: HYDROmorphone HCl 0.5 MG/0.5 ML SYRINGE 0.25 MG IVPUSH ×3 (12:15→19:24)
[2021-10-24] MEDS: ceFAZolin Sodium/Dextrose,Iso 2 GM/50 ML PIGGYBACK IV (14:19)
[2021-10-24] MEDS: Lactated Ringers 1,000 ML 100 ML IVCONT ×2 (14:19→23:53)
[2021-10-24] MEDS: ondansetron HCL 4 MG/2 ML VIAL IVPUSH (16:53)
[2021-10-24] MEDS: LORazepam 0.5 MG TABLET PO (18:05)
[2021-10-24] MEDS: 0.9 % Sodium Chloride Flush 3 ML SYRINGE IVFLUSH (19:24)
[2021-10-25] MEDS: ondansetron HCL 4 MG/2 ML VIAL IVPUSH (02:20)
[2021-10-25 03:43] VITALS: BP 173/93; PULSE 89; RESP 17; TEMP 36.2; O2SAT 97
[2021-10-25 03:59] VITALS: BP 152/80
[2021-10-25 05:52] LABS: MANUAL DIFF FLAG NO
[2021-10-25 05:59] LABS: Basophils Percent Auto 0.2 % (0-2); Hematocrit 34.6 % (37.0-47.0); Hemoglobin 11.8 g/dl (12.0-16.0); Imm Gran Abs Auto 0.07 X10*3/uL (0.00-0.03); Imm Gran Pct Auto 0.6 % (0.0-0.4); Lymphocytes Absolute Auto 1.3 X10*3/uL (1.2-4.9); Lymphocytes Percent Auto 10.3 % (20-40); Mean Corpuscular HGB Conc 34.1 g/dl (31.0-35.0); Mean Corpuscular Hemoglobin 29.9 pg (27.0-33.0); Mean Corpuscular Volume 87.6 fL (80.0-98.0); Mean Platelet Volume 11.4 fL (9.4-12.3); Monocytes Percent Auto 8.2 % (2-11); Neutrophils Absolute Auto 10.2 x10*3/uL (2.0-8.3); Neutrophils Percent Auto 80.7 % (45-73); Platelet Count 207 X10*3/uL (160-400); Red Blood Count 3.95 X10*6/uL (4.20-5.50); Red Cell Distribution Width 11.8 % (11.0-16.0); White Blood Count 12.6 X10*3/uL (4.8-10.8)
[2021-10-25 06:30] LABS: Anion Gap 11 (12-20); Blood Urea Nitrogen 7 mg/dL (9-16); Carbon Dioxide 24 mmol/L (22-29); Chloride 103 mmol/L (96-108); Creatinine Clr Calc Pharmacy 110.9; Estimated Glomerular Filt Rate > 60; Glucose Random 91 mg/dL (60-115); Potassium 3.8 mmol/L (3.3-5.1); Sodium 134 mmol/L (135-145)
[2021-10-25] MEDS: Famotidine/PF 20 MG/2 ML VIAL IVPUSH (07:02)
[2021-10-25] MEDS: 0.9 % Sodium Chloride Flush 3 ML SYRINGE IVFLUSH (07:03)
[2021-10-25 07:16] VITALS: BP 193/91; PULSE 82; RESP 18; TEMP 36.4; O2SAT 98
[2021-10-25 09:04] VITALS: BP 149/68; PULSE 73
--- NOTE | 2021-10-25 09:14 | PM.PNGS ---
Subjective Subjective Date of Service: 10/25/21 Interval history: Pt has been tolerating phase 1 diet well since yesterday. No nausea, emesis, some mild abd,pain,used dilaudid x 1 only. Has been ambulating, voiding well and feels hungry . Using ICS up to 2500. She states she has all meds, protein powder and equipment needed at home. Physical Exam Vital Signs: Vital Signs: Last Vital Signs Temp 97.5 F 10/25/21 07:16 Pulse 73 10/25/21 09:04 Resp 18 10/25/21 07:16 BP 149/68 H 10/25/21 09:04 Pulse Ox 98 10/25/21 07:16 BMI result Body Mass Index 32.5 Const: General: cooperative, healthy appearing and no acute distress Orientation/consciousness: patient oriented x3 Limitations: no limitations GI: Inspection: Yes incision (all dressings clean,dry and intact) Palpation (GI): Soft to palpation, nontender, no guarding and no masses Neuro: General: patient oriented x3 Extrem: General: Yes no pedal edema and No calf tenderness Objective Data Active Medications Famotidine (Famotidine/Pf 20 Mg/2 Ml Vial) 20 mg IVPUSH BID [facility] Last Admin: 10/25/21 07:02 Dose: 20 mg Documented by: JAZZ Hydromorphone HCl (Hydromorphone Hcl 0.5 Mg/0.5 Ml Syringe) 0.25 mg IVPUSH Q4H PRN; Protocol PRN Reason: Pain, Moderate (Pain Scale 4-6 Last Admin: 10/24/21 19:24 Dose: 0.25 mg Documented by: NANCY Lactated Ringer's (Lr) 1,000 mls @ 50 mls/hr IVCONT .Q20H [facility] Last Admin: 10/25/21 07:05 Dose: Not Given Documented by: JAZZ Non-Admin Reason: IV Running Acetaminophen (Ofirmev) 1,000 mg in 100 mls @ 16.7 mls/hr IV .Q6H [facility] Last Infusion: 10/25/21 08:56 Dose: 0 mls/hr Documented by: JAZZ Lorazepam (Lorazepam 0.5 Mg Tablet) 0.5 mg PO DAILY PRN PRN Reason: Anxiety Last Admin: 10/24/21 18:05 Dose: 0.5 mg Documented by: JAZZ Ondansetron HCl (Ondansetron Hcl 4 Mg/2 Ml Vial) 4 mg IVPUSH Q8H [facility] Last Admin: 10/25/21 02:20 Dose: 4 mg Documented by: NAYANAQC Sodium Chloride (0.9 % Sodium Chloride Flush 3 Ml Syringe) 3 ml IVFLUSH QSHIFT [facility] Last Admin: 10/25/21 07:03 Dose: 3 ml Documented by: JAZZ Labs CBC & Chem 7: 10/25/21 05:21 10/25/21 05:21 Labs: Laboratory Results - last 24 hr 10/25/21 10/25/21 05:21 05:21 MCV 87.6 MCH 29.9 MCHC 34.1 RDW 11.8 Plt Count 207 MPV 11.4 Immature Gran % (Auto) 0.6 H Neut % (Auto) 80.7 H Lymph % (Auto) 10.3 L [place] % (Auto) 8.2 Eos % (Auto) 0.0 Baso % (Auto) 0.2 Lymph # (Auto) 1.3 [place] # (Auto) 1.0 Eos # (Auto) 0.0 Baso # (Auto) 0.0 Abs Immat Gran (auto) 0.07 H Absolute Neuts (auto) 10.2 H Absolute Nucleated RBC 0.000 Nucleated RBC % (auto) 0.0 Anion Gap 11 L Estim Creat Clear Calc 110.9 Estimated GFR > 60 Random Glucose 91 Calcium 9.0 Procedures Date of Service Date of Service: 10/25/21 Progress Note: A&P Assessment and plan (1) S/P laparoscopic sleeve gastrectomy: Status: Acute Assessment and Plan: POD # 1 s/p lap sleeve gastrectomy, stable and ready for discharge. Post op instructions reviewed with patient. Continue phase 1 diet at home until told to progress by Dr Howard. Ambulate in home q 2h. Continue ICS x 10 hourly for at least [address] Hayes will contact her later today. She will check her BP tomorrow in am to evaluate on when to restart HCTZ. Case discussed with Dr Howard. (2) PRANAY (obstructive sleep apnea): Status: Acute Assessment and Plan: Continue CPAP nightly (3) ADHD: Status: Acute Assessment and Plan: Continue home medications. Fall Risk Details Current Medications: Current Medications Famotidine (Famotidine/Pf 20 Mg/2 Ml Vial) 20 mg IVPUSH BID [facility] Last Admin: 10/25/21 07:02 Dose: 20 mg Documented by: Hydromorphone HCl (Hydromorphone Hcl 0.5 Mg/0.5 Ml Syringe) 0.25 mg IVPUSH Q4H PRN; Protocol PRN Reason: Pain, Moderate (Pain Scale 4-6 Last Admin: 10/24/21 19:24 Dose: 0.25 mg Documented by: Lactated Ringer's (Lr) 1,000 mls @ 50 mls/hr IVCONT .Q20H [facility] Last Admin: 10/25/21 07:05 Dose: Not Given Documented by: Acetaminophen (Ofirmev) 1,000 mg in 100 mls @ 16.7 mls/hr IV .Q6H [facility] Last Infusion: 10/25/21 08:56 Dose: Infused Documented by: Lorazepam (Lorazepam 0.5 Mg Tablet) 0.5 mg PO DAILY PRN PRN Reason: Anxiety Last Admin: 10/24/21 18:05 Dose: 0.5 mg Documented by: Ondansetron HCl (Ondansetron Hcl 4 Mg/2 Ml Vial) 4 mg IVPUSH Q8H [facility] Last Admin: 10/25/21 02:20 Dose: 4 mg Documented by: Sodium Chloride (0.9 % Sodium Chloride Flush 3 Ml Syringe) 3 ml IVFLUSH QSHIFT [facility] Last Admin: 10/25/21 07:03 Dose: 3 ml Documented by: Time Spent With Patient Time: Total time spent is greater than 50% in coordination of care (as documented) at patient's floor/unit and/or counseling patient: Time with patient: 15 - 24 minutes Quality Stroke Does the patient have a stroke diagnosis?: No VTE Prior VTE?: No VTE Risk Level:: Surgical - low VTE Device Contraindication: N/A - Device Ordered VTE Drug Contraindication: Treatment Not Indicated
--- NOTE | 2021-10-25 13:19 | HO.POSTANES ---
Post Anesthesia Evaluation Post Anesthesia Evaluation Vital Signs: Vital Signs Temp Pulse Resp BP Pulse Ox 10/25/21 09:04 73 149/68 H 10/25/21 07:16 97.5 F 82 18 193/91 H 98 10/25/21 03:59 152/80 H 10/25/21 03:43 97.2 F 89 17 173/93 H 97 Anesthesia: General Endotracheal-GETA Mental Status: Awake Pain Control: Satisfactory Nausea/Vomiting: None Hydration: Adequate Anesthesia-Related Issues: No Anes. Related Issues
--- NOTE | 2021-10-25 14:05 | MHC.CM.PN ---
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
== END 2021-10-25 10:04 | disposition home or self-care (01) | DRG 403 ==
LOC: HO.SSSA 10:21 → HO.S3 12:03
PROVIDERS: Physician Assistant Surgical; Admitting Provider Surgery; Visit Provider Surgery
PROC: 0DB64Z3 Excision of Stomach, Percutaneous Endoscopic Approach, Vertical (ICD-10-PCS; CPT 43845; principal; 2021-10-24 07:30)
DX: E66.01 Morbid (severe) obesity due to excess calories (principal); E78.5 Hyperlipidemia, unspecified; F32.A Depression, unspecified; F41.9 Anxiety disorder, unspecified; F90.9 Attention-deficit hyperactivity disorder, unspecified type; K21.9 Gastro-esophageal reflux disease without esophagitis; G47.30 Sleep apnea, unspecified; M19.90 Unspecified osteoarthritis, unspecified site; G47.00 Insomnia, unspecified; K82.4 Cholesterolosis of gallbladder; Z20.822 Contact with and (suspected) exposure to COVID-19; Z68.32 Body mass index [BMI] 32.0-32.9, adult; Z79.3 Long term (current) use of hormonal contraceptives; Z79.899 Other long term (current) drug therapy
CPT/HCPCS: 36415; 80048; 80053; 80061; 81025; 83036; 83525; 84443; 85014; 85018; 85025; 85610; 85730; 86140; 86850; 86900; 86901; 87635; 88307; 88342; A4649; J0131; J0690; J1100; J1170; J2250; J2370; J2405; J3010

== ENCOUNTER → 2021-10-28 08:02 | Outpatient (BNVA) | payer OTHER, SELFPAY | PROVIDERS: Visit Provider Surgery | DX: E66.9 Obesity, unspecified (principal); Z68.30 Body mass index [BMI] 30.0-30.9, adult | CPT/HCPCS: 99212 ==

== ENCOUNTER → 2021-11-25 07:56 | Outpatient (BNVA) | payer OTHER, SELFPAY | PROVIDERS: Visit Provider Physician Assistant Surgical | DX: E66.3 Overweight (principal); Z68.29 Body mass index [BMI] 29.0-29.9, adult | CPT/HCPCS: 99212 ==

== ENCOUNTER → 2022-01-16 08:13 | Outpatient (BNVA) | payer OTHER, SELFPAY | PROVIDERS: Visit Provider Physician Assistant Surgical | DX: E66.3 Overweight (principal); R10.11 Right upper quadrant pain; Z68.27 Body mass index [BMI] 27.0-27.9, adult | CPT/HCPCS: 99212 ==

== ENCOUNTER 2022-02-14 14:43 | Outpatient (REF) | payer OTHER, SELFPAY ==
--- NOTE | ~2022-02-14 | US_ITS ---
EXAMINATION: US ABDOMEN LIMITED CLINICAL INFORMATION: Right upper quadrant pain. COMPARISON: Ultrasound abdomen complete with liver elastography 10/09/2021. Ultrasound abdomen complete 08/12/2014. CT abdomen and pelvis without and with contrast 08/19/2013. TECHNIQUE: Real-time imaging of the right upper quadrant abdominal viscera. FINDINGS: PANCREAS: The visualized body of the pancreas is unremarkable. LIVER: Normal. The liver is normal in size. The liver contour is normal. Parenchymal echogenicity is normal. No focal hepatic lesion. There is no intrahepatic biliary duct dilatation seen. GALLBLADDER: Sub-5 mm intraluminal fixed echogenicities are present, most consistent with intraluminal polyps. The gallbladder is physiologically distended without evidence of stones, sludge, wall thickening or pericholecystic fluid. COMMON BILE DUCT: Normal in caliber measuring 0.3 cm in diameter. RIGHT KIDNEY: Normal. No hydronephrosis. No renal calculi or focal parenchymal lesions. The kidney measures 10.5 cm in maximum dimension. FREE FLUID: None. US/US abdomen limited IMPRESSION: 1. Sub-5 mm gallbladder polyps. 2. Otherwise unremarkable study.
== END 2022-02-14 14:44 | disposition home or self-care (01) ==
LOC: HO.US 14:43
PROVIDERS: PCP Family Medicine; Visit Provider Physician Assistant Surgical
DX: R10.11 Right upper quadrant pain (principal)
CPT/HCPCS: 76705

== ENCOUNTER → 2022-03-14 08:11 | Outpatient (BNVA) | payer OTHER, SELFPAY | PROVIDERS: PCP Family Medicine; Visit Provider Physician Assistant | DX: Z13.89 Encounter for screening for other disorder (principal) ==

== ENCOUNTER 2023-12-24 10:26 | Outpatient (AMB) | payer OTHER, SELFPAY ==
--- NOTE | 2023-12-24 10:32 | A.OFFVIS_ITS ---
Intake VS Expanded 12/24/23 10:56 BP 125/74 Blood Pressure Location Rt brachial Blood Pressure Position Sitting Pulse 91 Pulse Source Pulse Oximeter Temp 97.7 F Temperature Source Temporal Artery Scan Pulse Oximetry 100 Oxygen Delivery Method Room Air Height 5 ft 2 in Weight 159 lb 9.6 oz BMI 29.2 Body Fat % 38.5 Body Fat Mass 61.2 Fat Free Mass 98.2 Visceral Fat Rating 8.0 Body Water % 44.0 Body Water Mass 70.2 Muscle Mass/Score 93.0 Basal Metabolic Rate/Score 1,363 Intake Visit Reasons: (OV) PO LSG 10/24/21 Allergies prochlorperazine [From Compazine] Allergy (Intermediate, Verified 12/24/23 10:35) jittery Medication List - Last Reconciled 12/24/23 by WARD Reynoso amitriptyline 25 mg PO BEDTIME dextroamphetamine-amphetamine 20 mg ER 20 mg PO QAM escitalopram oxalate (Lexapro) 20 mg PO DAILY lorazepam 0.5 mg PO DAILY PRN melatonin 5 mg PO BEDTIME trazodone 100 mg PO DAILY HPI HPI Comments History of Present Illness Details This?is a?43?yo female who is s/p LSG 10/24/2021. Presents for 2 year 2 month post op visit. Weight at last visit on 01/16/2022 was 152.4 pounds with a BMI of 29.2, weight today is 159.6 pounds, representing a 7.2 pound weight gain with a BMI today of 29.2.? No complaints of nausea, emesis, abdominal pain or reflux, or constipation. Pt returns due to unhappiness with weight gain. Recognizes she has been o vereating. Lowest weight she was able to obtain was 142lbs. Excess skin of abdomen is also bothering her. Present meal plan includes: not following a formal meal plan usually one Premier powder shake per day likes [employer] Exercise routine includes: has a PF membership but doesn't go often Did the patient ever have any of these conditions and are they resolved or still being treated? GERD: rare PRANAY:? cannot wear CPAP due to anxiety DM:? never HTN:? never Hyperlipidemia:? never? Post op complications:? none PFSH Medical History (Updated 01/16/22 @ 15:46 by WARD Herman) GERD (gastroesophageal reflux disease) Patient is Jain COVID-19 vaccine series completed BMI 32.0-32.9,adult History of alcohol dependence BMI 33.0-33.9,adult ADHD Binge eating disorder Vitamin D deficiency Carpal tunnel syndrome Tennis elbow Arthritis Hyperlipidemia PVC (premature ventricular contraction) PRANAY (obstructive sleep apnea) Depression Anxiety BMI 35.0-35.9,adult Obesity (BMI 30-39.9) Surgical History Hx of local excision of skin lesion Hx of section Family History Father Depression Mother Hypothyroidism Diabetes Brother No problems noted. Brother No problems noted. Brother No problems noted. Brother No problems noted. Brother No problems noted. Sister No problems noted. Sister No problems noted. Sister No problems noted. Daughter No problems noted. Daughter No problems noted. Social History (Updated 12/24/23 @ 10:39 by Nupur Willoughby CMA) Household Members Other:: 2 children-oldest 16 y.o. 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 Do you presently have visiting nurse or other home services: No Alcohol intake: current Alcohol intake frequency: a few times a week Patient Tobacco Use Status: Never used Tobacco service: No Current occupational status: employed Physical Exam Vital Signs: Last Vital Signs Temp 97.7 F 12/24/23 10:56 Pulse 91 12/24/23 10:56 BP 125/74 12/24/23 10:56 Pulse Ox 100 12/24/23 10:56 Oxygen Delivery Method Room Air 12/24/23 10:56 BMI result Body Mass Index 29.2 Assessment & Plan Assessment & Plan (1) Overweight (BMI 25.0-29.9): Code(s): E66.3 - Overweight (2) S/P laparoscopic sleeve gastrectomy: Code(s): Z98.84 - Bariatric surgery status Plan New high protein meal plan with goal 65g/protein: Breakfast- Premier shake with 1 scoop in 8oz [employer] Lunch- Khmer yogurt, can add berries Dinner- 6 forkfuls protein, 6 forkfuls maya/veg Snack- [employer] bar Encouraged exercise, start with 20-30min most days, either at PF or gave home workout video sheet Labs ordered. RTC 6-8 weeks. Texted plan to pt and encouraged her to reach out between appts with any questions. Patient is overweight and is not considered stable at this time. I spent a total of 30 minutes reviewing/updating records, examining the patient and counseling the patient on weight management as detailed above. Orders: Orders Complete Blood Count Auto Diff Today Z98.84 - Bariatric surgery status Lipid Panel Today Z98.84 - Bariatric surgery status Comprehensive Met. Panel Today Z.84 - Bariatric surgery status Vitamin B12 and Folate Today Z.84 - Bariatric surgery status Zinc Today Z98.84 - Bariatric surgery status C Reactive Protein Today Z98.84 - Bariatric surgery status Vitamin B1 Today Z98.84 - Bariatric surgery status Vitamin A Today Z98.84 - Bariatric surgery status Ferritin Today Z98.84 - Bariatric surgery status Vitamin D 25-OH Total Today Z98.84 - Bariatric surgery status Insulin Today Z98.84 - Bariatric surgery status Hemoglobin A1c Today Z98.84 - Bariatric surgery status IRON PROFILE Today Z98.84 - Bariatric surgery status TSH reflex Free T4 Today Z98.84 - Bariatric surgery status Coding Level of Care Code Est Pt Level 4 (96991) Diagnoses Overweight (BMI 25.0-29.9) E66.3 S/P laparoscopic sleeve gastrectomy Z98.84
[2023-12-24 10:56] VITALS: BP 125/74; PULSE 91; TEMP 36.5; O2SAT 100; BMI 29.2
== END 2023-12-24 11:30 | disposition home or self-care (01) ==
PROVIDERS: PCP Nurse Practitioner Family; Visit Provider Physician Assistant Surgical
DX: E66.3 Overweight (principal); Z98.84 Bariatric surgery status
CPT/HCPCS: 99214

== ENCOUNTER → 2023-12-24 10:26 | Outpatient (BNVA) | payer OTHER, SELFPAY | PROVIDERS: PCP Family Medicine; Visit Provider Physician Assistant Surgical | DX: E66.3 Overweight (principal); Z98.84 Bariatric surgery status; Z68.29 Body mass index [BMI] 29.0-29.9, adult | CPT/HCPCS: 99212 ==

== ENCOUNTER 2024-01-27 08:22 | Outpatient (REF) | payer OTHER, SELFPAY ==
[2024-01-27 08:41] LABS: MANUAL DIFF FLAG NO
[2024-01-27 08:52] LABS: Basophils Percent Auto 0.5 % (0-2); Eosinophils Absolute Auto 0.1 X10*3/uL (0.0-0.4); Eosinophils Percent Auto 1.3 % (0-4); Hematocrit 37.4 % (37.0-47.0); Hemoglobin 12.7 g/dl (12.0-16.0); Imm Gran Abs Auto 0.02 X10*3/uL (0.00-0.03); Imm Gran Pct Auto 0.3 % (0.0-0.4); Lymphocytes Absolute Auto 1.7 X10*3/uL (1.2-4.9); Mean Corpuscular Hemoglobin 31.4 pg (27.0-33.0); Mean Corpuscular Volume 92.6 fL (80.0-98.0); Monocytes Absolute Auto 0.5 X10*3/uL (0.1-1.2); Monocytes Percent Auto 6.7 % (2-11); Neutrophils Absolute Auto 5.1 x10*3/uL (2.0-8.3); Neutrophils Percent Auto 68.2 % (45-73); Platelet Count 257 X10*3/uL (160-400); Red Blood Count 4.04 X10*6/uL (4.20-5.50); Red Cell Distribution Width 12.1 % (11.0-16.0); White Blood Count 7.4 X10*3/uL (4.8-10.8)
[2024-01-27 09:19] LABS: Estimated Average Glucose 82 mg/dL; Hemoglobin A1c % 4.5 % (<6.0)
[2024-01-27 09:31] LABS: Alanine Aminotransferase 14 U/L (0-31); Albumin Level 3.7 g/dL (3.5-5.0); Alkaline Phosphatase 56 U/L (39-117); Anion Gap 10 (12-20); Aspartate Amino Transferase 16 U/L (5-31); Bilirubin Total 0.5 mg/dL (0.0-1.0); Blood Urea Nitrogen 12 mg/dL (9-16); C Reactive Protein 0.78 mg/dL (< or = 0.50); Calcium 8.9 mg/dL (8.4-10.2); Carbon Dioxide 27 mmol/L (22-29); Chloride 107 mmol/L (96-108); Cholesterol 209 mg/dL (<200); Estimated Glomerular Filt Rate > 60; Glucose Random 82 mg/dL (60-115); HDL Cholesterol 44 mg/dL (>40); Iron 175 mcg/dL (30-160); LDL Cholesterol Calculated 141 mg/dL (<100); Percent Iron Saturation 61 % (15-50); Potassium 3.7 mmol/L (3.3-5.1); Sodium 140 mmol/L (135-145); Total Iron Binding Capacity 289 mcg/dL (228-428); Total Protein 6.9 g/dL (6.5-8.0); Triglycerides 120 mg/dL (<150); Unsaturated Iron Binding 114 ug/dL
[2024-01-27 09:35] LABS: Ferritin 152 ng/mL (10-250); TSH reflex Free T4 0.95 uIU/mL (0.32-4.0); Vitamin D 25-OH Total 46.7 ng/mL (>30)
[2024-01-27 10:46] LABS: Insulin 9 uU/mL (2-29)
[2024-01-27 10:51] LABS: Folate 10.3 ng/mL (> or = 4.0); Vitamin B12 678 pg/mL (200-900)
[2024-01-29 17:52] LABS: Zinc 65 mcg/dL (60-130)
[2024-02-02 02:54] LABS: Vitamin A 66 mcg/dL (38-98)
[2024-02-02 14:47] LABS: Vitamin B1 <6 nmol/L (8-30)
== END 2024-01-27 08:23 | disposition home or self-care (01) ==
LOC: HO.LAB 08:22
PROVIDERS: PCP Nurse Practitioner Family; Visit Provider Physician Assistant Surgical
DX: Z98.84 Bariatric surgery status (principal)
CPT/HCPCS: 36415; 80053; 80061; 82306; 82607; 82728; 82746; 83036; 83525; 83540; 84425; 84443; 84590; 84630; 85025; 86140

== ENCOUNTER 2024-02-24 12:42 | Outpatient (AMB) | payer OTHER, SELFPAY ==
--- NOTE | 2024-02-24 12:34 | MHC.OFFVISWM ---
VS Expanded 02/24/24 12:37 Height 5 ft 2 in Weight 152 lb 8 oz BMI 27.9 Intake Visit Reasons: (TELEPHONE) PO LSG 10/24/21 Allergies prochlorperazine [From Compazine] Allergy (Intermediate, Verified 12/24/23 10:35) jittery Medication List - Last Reconciled 02/24/24 by WARD Reynoso amitriptyline 25 mg PO BEDTIME dextroamphetamine-amphetamine 20 mg ER 20 mg PO QAM escitalopram oxalate (Lexapro) 20 mg PO DAILY lorazepam 0.5 mg PO DAILY PRN melatonin 5 mg PO BEDTIME trazodone 100 mg PO DAILY HPI Comments Details: This?is a?43?yo female who is s/p LSG 10/24/2021. Weight change of -6.2lbs since last OV 8 weeks ago.? No complaints of nausea, emesis, abdominal pain or reflux, or constipation. Present meal plan includes: goal 65g/protein Breakfast- Premier shake with 1 scoop in 8oz UAM Lunch- Georgian yogurt, can add berries; sometimes doesn't have this if she's full from breakfast Dinner- 6 forkfuls protein, 6 forkfuls salad/veg Snack- Fitcrunch bar- also skips this sometimes Exercise routine includes: tried online videos, tor Zelaya Pt reports excess skin of abdomen that has become bothersome. Gets itchy painful rashes in skin folds, has tried Eucerin cream which has not helped. Notices moisture in the area, difficult to keep clean during the day. Excess skin gets in the way when she is exercising and makes many normal daily activities more difficult due to discomfort. Has to wear compressive garment around her torso to hold skin in place. [facility] Medical History (Updated 02/24/24 @ 12:45 by WARD Reynoso) GERD (gastroesophageal reflux disease) Patient is Jainism COVID-19 vaccine series completed BMI 32.0-32.9,adult History of alcohol dependence BMI 33.0-33.9,adult ADHD Binge eating disorder Vitamin D deficiency Carpal tunnel syndrome Tennis elbow Arthritis Hyperlipidemia PVC (premature ventricular contraction) PRANAY (obstructive sleep apnea) Depression Anxiety BMI 35.0-35.9,adult Obesity (BMI 30-39.9) Surgical History Hx of local excision of skin lesion Hx of section Family History Father Depression Mother Hypothyroidism Diabetes Brother No problems noted. Brother No problems noted. Brother No problems noted. Brother No problems noted. Brother No problems noted. Sister No problems noted. Sister No problems noted. Sister No problems noted. Daughter No problems noted. Daughter No problems noted. Social History (Updated 12/24/23 @ 10:39 by Nupur Willoughby [facility]) Household Members Other:: 2 children-oldest 16 y.o. Are you a primary urgent care to a significant other at home: Yes Do you presently have visiting nurse or other home services: No Alcohol intake: current Alcohol intake frequency: a few times a week Patient Tobacco Use Status: Never used Tobacco service: No Current occupational status: employed Telehealth Telehealth Telehealth Platform: Telephone Location of provider rendering services: practice address Location of patient: address on file Patient Identification confirmed using: Name, : Yes Telehealth method: voice only Patient verbally consented to treatment: Yes Patient verbally consented to billing insurance company: Yes Patient informed of any privacy concerns related to visit: Yes Minutes spent on Phone/Video with Pt.: 12 Assessment & Plan Assessment & Plan (1) Overweight (BMI 25.0-29.9): Code(s): E66.3 - Overweight Category: Medical (2) S/P laparoscopic sleeve gastrectomy: Code(s): Z98.84 - Bariatric surgery status Category: Surgical (3) Excess skin: Code(s): L98.7 - Excessive and redundant skin and subcutaneous tissue Category: Medical Plan We discussed that pt is likely low on protein if she is skipping 1-2 items per day. Encouarged her to not skip even if she is not hungry. Clotrimazole ointment ordered for rashes of excess skin. RTC 8 weeks for follow up of weight loss and excess skin. Patient is overweight and is not considered stable at this time. I spent a total of 30 minutes reviewing/updating records, examining the patient and counseling the patient on weight management as detailed above. Medications: New clotrimazole 1% 1 appl topical BID 45 grams 3RF
[2024-02-24 12:37] VITALS: BMI 27.9
== END 2024-02-24 13:06 | disposition home or self-care (01) ==
LOC: HO.HBS 12:42
PROVIDERS: PCP Nurse Practitioner Family; Visit Provider Physician Assistant Surgical
DX: L98.7 Excessive and redundant skin and subcutaneous tissue (principal); E66.3 Overweight; Z68.27 Body mass index [BMI] 27.0-27.9, adult; Z98.84 Bariatric surgery status
CPT/HCPCS: 99214

== ENCOUNTER → 2024-02-24 12:42 | Outpatient (BNVA) | payer OTHER, SELFPAY | PROVIDERS: PCP Nurse Practitioner Family; Visit Provider Physician Assistant Surgical ==

== ENCOUNTER 2024-05-18 11:39 | Outpatient (AMB) | payer OTHER, SELFPAY ==
--- NOTE | 2024-05-18 11:32 | A.OFFVIS_ITS ---
VS Expanded 05/18/24 11:35 Height 5 ft 2 in Weight 147 lb 9 oz BMI 27.0 Intake Visit Reasons: (TELEPHONE) PO LSG 10/24/21 Allergies prochlorperazine [From Compazine] Allergy (Intermediate, Verified 12/24/23 10:35) jittery Medication List - Last Reconciled 05/18/24 by WARD Reynoso amitriptyline 25 mg PO BEDTIME clotrimazole 1% 1 appl topical BID dextroamphetamine-amphetamine 20 mg ER 20 mg PO QAM escitalopram oxalate (Lexapro) 20 mg PO DAILY lorazepam 0.5 mg PO DAILY PRN melatonin 5 mg PO BEDTIME thiamine HCl (vitamin B1) 100 mg PO DAILY trazodone 100 mg PO DAILY HPI Comments Details: This?is a?44?yo female who is s/p LSG 10/24/2021. Weight at last visit on 02/24/2024 was 152.8 pounds with a BMI of 27.9, weight today is 147.9 pounds, representing a 5 pound weight loss with a BMI today of 27.? No complaints of nausea, emesis, abdominal pain or reflux, or constipation. Present meal plan includes: goal 65g/protein Breakfast- Premier shake with 1 scoop in 8oz UAM Lunch- Wol[place] yogurt, can add berries Dinner- 6 forkfuls protein, 6 forkfuls salad/veg Snack- Fitcrunch bar doing better getting all protein in Exercise routine includes: tried online videos, likes Nathalie Pt reports excess skin of abdomen that has become bothersome. Gets itchy painful rashes in skin folds, has tried clotrimazole cream which has not helped. Notices moisture in the area, difficult to keep clean during the day. Excess skin gets in the way when she is exercising and makes many normal daily activities more difficult due to discomfort. Has to wear compressive garment around her torso to hold skin in place. [facility] Medical History (Updated 02/24/24 @ 12:45 by WARD Reynoso) GERD (gastroesophageal reflux disease) Patient is Jehovah's witness COVID-19 vaccine series completed BMI 32.0-32.9,adult History of alcohol dependence BMI 33.0-33.9,adult ADHD Binge eating disorder Vitamin D deficiency Carpal tunnel syndrome Tennis elbow Arthritis Hyperlipidemia PVC (premature ventricular contraction) PRANAY (obstructive sleep apnea) Depression Anxiety BMI 35.0-35.9,adult Obesity (BMI 30-39.9) Surgical History Hx of local excision of skin lesion Hx of section Family History Father Depression Mother Hypothyroidism Diabetes Brother No problems noted. Brother No problems noted. Brother No problems noted. Brother No problems noted. Brother No problems noted. Sister No problems noted. Sister No problems noted. Sister No problems noted. Daughter No problems noted. Daughter No problems noted. Social History (Updated 12/24/23 @ 10:39 by Nupur Willoughby CMA) Household Members Other:: 2 children-oldest 16 y.o. Are you a primary daycare assistant to a significant other at home: Yes Do you presently have visiting nurse or other home services: No Alcohol intake: current Alcohol intake frequency: a few times a week Patient Tobacco Use Status: Never used Tobacco service: No Current occupational status: employed Telehealth Telehealth Telehealth Platform: Telephone Location of provider rendering services: practice address Location of patient: address on file Patient Identification confirmed using: Name, : Yes Telehealth method: voice only Patient verbally consented to treatment: Yes Patient verbally consented to billing insurance company: Yes Patient informed of any privacy concerns related to visit: Yes Minutes spent on Phone/Video with Pt.: 15 Assessment & Plan Assessment & Plan (1) Excess skin: Code(s): L98.7 - Excessive and redundant skin and subcutaneous tissue Category: Medical (2) Overweight (BMI 25.0-29.9): Code(s): E66.3 - Overweight Category: Medical (3) S/P laparoscopic sleeve gastrectomy: Code(s): Z98.84 - Bariatric surgery status Category: Surgical Plan Pt has achieved a BMI of 27.1, however 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 Will continue clotrimazole ointment for now and can revisit if pt feels her job will have appropriate coverage in her absence in the future. RTC 3 months, texted pt and encouraged her to let me know if circumstances change and she decides to move forward with surgery. I spent a total of 30 minutes reviewing/updating records, examining the patient and counseling the patient on weight management as detailed above.
[2024-05-18 11:35] VITALS: BMI 27.0
== END 2024-05-18 11:57 | disposition home or self-care (01) ==
LOC: HO.HBS 11:39
PROVIDERS: PCP Nurse Practitioner Family; Visit Provider Physician Assistant Surgical
DX: L98.7 Excessive and redundant skin and subcutaneous tissue (principal); E66.3 Overweight; Z68.27 Body mass index [BMI] 27.0-27.9, adult; Z98.84 Bariatric surgery status
CPT/HCPCS: 99214; G2211

== ENCOUNTER → 2024-05-18 11:39 | Outpatient (BNVA) | payer OTHER, SELFPAY | PROVIDERS: PCP Nurse Practitioner Family; Visit Provider Physician Assistant Surgical ==

== ENCOUNTER 2024-10-28 13:43 | Outpatient (AMB) | payer OTHER, SELFPAY ==
--- NOTE | 2024-10-28 09:07 | MHC.OFFVISWM ---
VS Expanded 10/28/24 09:08 Height 5 ft 2 in Weight 159 lb 2 oz BMI 29.1 Intake Visit Reasons: TELEPHONE PO LSG 10/24/21 [employer] Assessment Specialist Required: No Allergies prochlorperazine [From Compazine] Allergy (Intermediate, Verified 12/24/23 10:35) jittery Medication List - Last Reconciled 10/28/24 by WARD Herman amitriptyline 25 mg PO BEDTIME clotrimazole 1% 1 appl topical BID dextroamphetamine-amphetamine 20 mg ER 20 mg PO QAM escitalopram oxalate (Lexapro) 20 mg PO DAILY lorazepam 0.5 mg PO DAILY PRN melatonin 5 mg PO BEDTIME thiamine HCl (vitamin B1) 100 mg PO DAILY trazodone 100 mg PO DAILY HPI Comments Details: This?a?44?yo female who is s/p LSG without hiatal hernia repair on?10/24/[address] Howard. Presents for 3 year post op visit. Weight today is 159.2 pounds, with a BMI today of 29.1. No complaints of nausea, emesis, abdominal pain or reflux. Reports infrequent but normal bowel movements every 3-4 days. She does not use fiber supplements but has some at home. She reports that her eating habits are poor and she does not exercise. Present meal plan includes: nothing formal Drinkin oz water daily ? Exercise routine includes: Time is very limited due to single mom with kids. Treadmill 2 times per week at home. Not tracking calories. walking outside once weekly for 1 hour Any post op complications: None PRANAY: couldn't tolerate PRANAY DM: Never HTN: Resolved Hyperlipidemia: Never GERD:?0-5 scale ??0 = no symptoms ??1 = symptoms noticeable but not bothersome 2 =symptoms bothersome but not daily ? 3 = symptoms bothersome and daily 4 = symptoms affect daily activities 5 = symptoms are incapacitating, unable to do daily activities ? How bad is the heartburn: 0 ? Heartburn while lying down: 0 ? Heartburn when standing up: 0 ? Heartburn after meals: 0 ? Does heartburn change your diet: 0 ? Does heartburn wake you up from sleep: 0 ? Do you have difficulty swallowin ? Do you have pain with swallowin ? If you take medicine for your reflux, does this affect your daily life: 0 Satisfaction with present condition - satisfied or not satisfied: not satisfied [facility] Medical History GERD (gastroesophageal reflux disease) Patient is [employer] COVID-19 vaccine series completed BMI 32.0-32.9,adult History of alcohol dependence BMI 33.0-33.9,adult ADHD Binge eating disorder Vitamin D deficiency Carpal tunnel syndrome Tennis elbow Arthritis Hyperlipidemia PVC (premature ventricular contraction) PRANAY (obstructive sleep apnea) Depression Anxiety BMI 35.0-35.9,adult Obesity (BMI 30-39.9) Surgical History Hx of local excision of skin lesion Hx of section Family History Father Depression Mother Hypothyroidism Diabetes Brother No problems noted. Brother No problems noted. Brother No problems noted. Brother No problems noted. Brother No problems noted. Sister No problems noted. Sister No problems noted. Sister No problems noted. Daughter No problems noted. Daughter No problems noted. Social History Household Members Other:: 2 children-oldest 16 y.o. Are you a primary manager care management to a significant other at home: Yes Do you presently have visiting nurse or other home services: No Alcohol intake: current Alcohol intake frequency: a few times a week Patient Tobacco Use Status: Never used Tobacco service: No Current occupational status: employed Physical Exam Vital Signs: BMI result Body Mass Index 29.1 Telehealth Telehealth Telehealth Platform: Telephone Location of provider rendering services: practice address Location of patient: other Patient Identification confirmed using: Name, : Yes Telehealth method: voice only Patient verbally consented to treatment: Yes Patient verbally consented to billing insurance company: Yes Patient informed of any privacy concerns related to visit: Yes Minutes spent on Phone/Video with Pt.: 15 Assessment & Plan Assessment & Plan (1) S/P laparoscopic sleeve gastrectomy: Code(s): Z98.84 - Bariatric surgery status Category: Surgical Plan: Discussed the importance of purpose fullness, discipline, consistency and time. Given information regarding the right BMI roberta. discussed the importance of exercise with a goal of burning 2000 calories per week or 300 calories per day. We will check yearly labs. Encouraged to text weight weekly and with any questions or concerns. Follow-up in 4-6 weeks. Orders: Orders Insulin Today E55.9 - Vitamin D deficiency, unspecified, I10 - Essential (primary) hypertension, Z98.84 - Bariatric surgery status Hemoglobin A1c Today E55.9 - Vitamin D deficiency, unspecified, I10 - Essential (primary) hypertension, Z98.84 - Bariatric surgery status Complete Blood Count Auto Diff Today E55.9 - Vitamin D deficiency, unspecified, I10 - Essential (primary) hypertension, Z98.84 - Bariatric surgery status Lipid Panel Today E55.9 - Vitamin D deficiency, unspecified, I10 - Essential (primary) hypertension, Z98.84 - Bariatric surgery status IRON PROFILE Today E55.9 - Vitamin D deficiency, unspecified, I10 - Essential (primary) hypertension, Z98.84 - Bariatric surgery status Zinc Today E55.9 - Vitamin D deficiency, unspecified, I10 - Essential (primary) hypertension, Z98.84 - Bariatric surgery status C Reactive Protein Today E55.9 - Vitamin D deficiency, unspecified, I10 - Essential (primary) hypertension, Z98.84 - Bariatric surgery status Ferritin Today E55.9 - Vitamin D deficiency, unspecified, I10 - Essential (primary) hypertension, Z98.84 - Bariatric surgery status Comprehensive Met. Panel Today E55.9 - Vitamin D deficiency, unspecified, I10 - Essential (primary) hypertension, Z98.84 - Bariatric surgery status Vitamin B12 and Folate Today E55.9 - Vitamin D deficiency, unspecified, I10 - Essential (primary) hypertension, Z98.84 - Bariatric surgery status Vitamin B1 Today E55.9 - Vitamin D deficiency, unspecified, I10 - Essential (primary) hypertension, Z98.84 - Bariatric surgery status Vitamin A Today E55.9 - Vitamin D deficiency, unspecified, I10 - Essential (primary) hypertension, Z98.84 - Bariatric surgery status TSH reflex Free T4 Today E55.9 - Vitamin D deficiency, unspecified, I10 - Essential (primary) hypertension, Z98.84 - Bariatric surgery status Vitamin D 25-OH Total Today E55.9 - Vitamin D deficiency, unspecified, I10 - Essential (primary) hypertension, Z98.84 - Bariatric surgery status
[2024-10-28 09:08] VITALS: BMI 29.1
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
== END 2024-10-28 13:43 | disposition home or self-care (01) ==
LOC: HO.HBS 13:43
PROVIDERS: PCP Nurse Practitioner Family; Visit Provider Physician Assistant Surgical
DX: E66.3 Overweight (principal); Z68.29 Body mass index [BMI] 29.0-29.9, adult; Z90.3 Acquired absence of stomach [part of]; Z98.84 Bariatric surgery status
CPT/HCPCS: 99214; G2211

== ENCOUNTER → 2024-10-28 13:43 | Outpatient (BNVA) | payer OTHER, SELFPAY | PROVIDERS: PCP Nurse Practitioner Family; Visit Provider Physician Assistant Surgical | DX: Z98.84 Bariatric surgery status (principal); I10 Essential (primary) hypertension; E55.9 Vitamin D deficiency, unspecified ==

== ENCOUNTER 2024-12-14 08:29 | Outpatient (REF) | payer OTHER, SELFPAY ==
[2024-12-14 09:00] LABS: MANUAL DIFF FLAG NO
--- OUTSIDE RECORDS SUMMARY | 2024-12-14 09:10 | XMS_ITS | Encounter Summary ---
Author Organization [employer] Address [address] [facility] 7 [place] [address] Care Team Providers Care Foundation Digger Name Role Phone Unavailable Primary Care Provider Unavailabl e Encounter Details Date Type Department Care Team (Latest Contact Info) Description 08/20/2022 Abstract [facility] CONVERSIONS Dental, Provider, DDS Social History Tobacco Use Types Packs/Day Years Used Date Smoking Tobacco: Never Assessed Comments Unknown Sex and Gender Information Value Date Recorded Sex Assigned at Female 09/01/2022 10:15 AM EDT Legal Sex Female 10:15 AM EDT Gender Identity Female 05/19/2023 12:22 PM EDT Sexual Orientation Choose not to disclose 2021 10:15 AM EDT documented as of this encounter Plan of Treatment Upcoming Encounters Date Type Department Care Team (Late st Contact Info) Description 01/04/2025 4:00 PM EST Office Visit [facility] [address] [place], [place] [phone] Winnie Porter [address] [place], [place] [phone] documented as of this encounter Visit Diagnoses Not on filedocumented in this encounter
--- OUTSIDE RECORDS SUMMARY | 2024-12-14 09:10 | XMS_ITS | Data Portability ---
Author Organization [facility] [employer], [employer] Address [address] [place] [address] [place] [address] Care Team Providers Care Inflated Ball Molder Name Role Phone HIREN MATTSON Referring Provider [phone] MAYA SCHAEFFER OTHER Assessment Encounter Date Assessment [...] 13, [address] Travis Lafleur [facility]: Cervical cord. C4-5 minimal uncovertebral [...] 13, [address] Travis Lafleur [facility]: Cervical cord. C4-5 minimal uncovertebral [...] 022 HEMALATHA Schaeffer MD, [address], [place], [address], 2 13:44:42 Procedures None recorded. Surgeries None recorded. 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 Patient TargetsNo [...] cervi annabelle spine , w/o contr ast [facility] MRI- [facility] Access ion Number : [id number] Patien t Name: Miki Linaresl Iftikhara rl Record Number : [id number] Date of : 1979 Date of Exam: 2020 Referr ing Physic rosas: Mariam Marie MD Neurol [facility] [address] [address] Exam: MR Cervic al Spine (C-) CPT 48025 Room Descri ption: [facility] Verio 3.0T HISTOR Y: Centra l pain syndro me. Modera te neck pain. TECHNI QUE: Multip lanar multis equenc e MRI of the cervic al spine withou t contra st. COMPAR [place]: No prior studie s are availa ble for compar [place] at [facility] . FINDIN GS: Subtle revers al of the cervic al lordos is withou t sublux ation. The cervic al verteb ral bodies and discs are normal in height and signal . No parasp inal edema on the sagitt al STIR images . The visual ized retail key holder ior crania l fossa struct ures and [...] ly Signed By: Travis Lafleur MD [email or web address] [facility] ([facility]) [address] [facility], [place], [address], 12/25/2021 10:26:11 Result Notes None recorded. Procedures Surgical History Date Name Laterality Status Provider Name and Address Organization Details Recorded Time 02/05/2022 DATA REVIEW completed Abel Marie MD [address] [place] [address] [place], [phone], [facility] 02/05/2022 10:34:14 11/13/2021 DATA REVIEW completed Abel Marie MD [address] [place] [address] [place], [phone], [facility] 11/13/2021 12:23:09 10/02/2021 DATA REVIEW completed Abel Marie MD [address] [place] [address] [place], [phone], [facility] 10/02/2021 11:11:47 Imaging Results Imaging Date Name Status LastModified by Chantal kaye Details LastModified Time 10/13/2021 MRI, cervical spine, w/o contrast completed [email or web address] [facility]) [address], [place], [address], 12/25/2021 10:26:11 Procedure Notes None recorded. Medical [...] Updated DateTime 10/02/2021 157.48 cm 32.6 kg/m2 40734.44 g 12 /min [facility] 10/02/2021 09:20:32 Social History Question Answer Notes LastModified by Organizat ion Details LastModified Time Tobacco Smoking Status Never Smoker [facility] 10/02/2021 09:22:36 What Is Your Level Of Alcohol Consumption? None Information not available 10/02/2021 What Is Your Level Of Caffeine Consumption? Occasional Information not available 10/02/2021 What Is The Highest Grade Or Level Of School You Have Completed Or The Highest Degree You Have Received? 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 Idiopathic peripheral neuropathy 83005964 G60.3 3464 Abel Marie MD [facility] [address] [place] [address] [place] [address] 11/13/2021 12:02:22 11/13/2021 17:04:34 Idiopathic peripheral neuropathy [id number] G60.3 4631 Abel Marie MD [facility] [address] [place] [address] [place] [address] 02/05/2022 10:09:17 02/05/2022 10:59:19 Idiopathic peripheral neuropathy [id number] G60.3 Health Concerns Section Related Observation LastModified by Organization Detai ls LastModified Time None Recorded Concern Status LastModified by Organization Details LastModified Time None Recorded Advance Directives Directive None Recorded Payers Encounter Date Sequence Insurance Name Policy Number Policy Li Covered Member ID Li Member ID Guarantor Name 10/02/2021 1 [facility] [employer] - TOGETHER (MEDICAID HMO) [id number] Violeta Muñiz [id number] 1 Violeta Muñiz 11/13/2021 1 [facility] [employer] - TOGETHER (MEDICAID HMO) [id number] Violeta Muñiz [id number] 1 Violeta Muñiz 02/05/2022 1 [facility] [employer] - TOGETHER (MEDICAID HMO) [id number] Violeta Muñiz [id number] 1 Violeta Muñiz Notes Date Note Type Note Provider Name and Address Organization Details Recorded Time 10/02/2021 text/html She presents for initial neurology consultation for assessment and management of onset a couple of years ago, ~end of 8083-7097, of worsening memory, episodic dizziness, trouble, feeling [...] 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 Abel Marie MD [address] [place] [address] [place], [phone], [facility] 02/05/2022 10:37:05 OBGyn Episode No OBEpisode recorded.
--- OUTSIDE RECORDS SUMMARY | 2024-12-14 09:11 | XMS_ITS | Clinical Summary ---
Author Organization [employer] Address [address] [place] [address] Care Team Providers Care Auto Painter Helper Name Role Phone Unavailable Primary Care Provider Unavailabl e Allergies Active Allergy Reactions Criticality Noted Date Comments Nabumetone 11/06/2020 Stomach pain Medications amphetamine-dex troamphetamine XR (Adderall XR) 10 MG 24 hr capsule Active escitalopram (Lexapro) 10 MG tablet TAKE 1 TABLET BY MOUTH ONCE DAILY DIRECTED 04/29/2023 Active hyoscyamine (Levsin) 0.125 MG SL tablet DISSOLVE 1 TABLET UNDER THE TONGUE AND ALLOW TO DISSOLVE THREE TIMES DAILY NEEDED 10/24/2022 Active Jolessa 0.15-0.03 MG tablet Take 1 tablet by mouth in the morning. 04/23/2023 Active LORazepam (Ativan) 0.5 MG tablet TAKE 1 TABLET BY MOUTH ONCE DAILY NEEDED FOR ANXIETY(DO NOT DRIVE AND OPERATE MACHINERY) 12/24/2022 Active traZODone (Desyrel) 50 MG tablet Take 50 mg by mouth at bedtime. 02/17/2023 Active dilTIAZem (Cardizem) 30 MG immediate release tablet Take 30 mg by mouth 4 times daily. Active amitriptyline (Elavil) 10 MG tablet Take by mouth at bedtime. Active Social History Tobacco Use Types Packs/Day Years Used Date Smoking Tobacco: Never Smokeless Tobacco: Never Tobacco Cessation:Counseling Given: Not Answered Comments Unknown Sex and Gender Information Value Date Recorded Sex Assigned at Female 09/01/2022 10:15 AM EDT Legal Sex Female 10:15 AM EDT Gender Identity Female 05/19/2023 12:22 PM EDT Sexual Orientation Choose not to disclose 2021 10:15 AM EDT Last Filed Vital Signs Vital Sign Reading Time Taken Comments Blood Pressure 118/60 08/10/2024 3:23 PM EDT Pulse 86 06/29/2024 2:55 PM EDT Temperature - - Respiratory Rate - - Oxygen Saturation - - Inhaled Oxygen Concentration - - Weight - - Height - - Body Mass Index - - Plan of Treatment Upcoming Encounters Date Type Department Care Team ([place] st Contact Info) Description 01/04/2025 4:00 PM EST Office Visit [facility] [address] [place] [address] Winnie Porter [address] [place], [place] [phone] Health Maintenance Due Date Last Done Comments CT Colonography 1979 Colonoscopy 1979 Colorectal Cancer Screening 1979 Depression Screening 1979 FIT DNA/Cologuard 1979 FIT 1979 FOBT 1979 HIV Screening 1979 SDOH Screening 1979 Sigmoidoscopy 1979 Alcohol/Substance Use Screening 1991 Family Planning (PISQ) 1994 Hepatitis C Screening 1997 Hepatitis B Vaccines (1 of 3 - 19+ 3-dose series) 1998 Pap Smear 02/25/2000 Cervical Cancer Screening 2009 HPV/Cotest 2009 COVID-19 Vaccine ( season) 2024 09/27/2022, 08/08/2021, 12/07/2020, Additional history exists Influenza Vaccine (#1) 2024 , 07/16/2022, 07/26/2021, Additional history exists Dental Oral Exam 12/31/2024 06/29/2024, 03/2023, 08/15/2022 Dental Prophylaxis 12/31/2024 06/29/2024, 0 05/06/2023, 08/20/2022 Dental X-Ray: Bitewings 06/30/2025 06/29/20 24, 05/06/2023, 08/15/2022 Tobacco Screening 08/10/2025 08/10/2024 Dental X-Ray: Full Mouth 08/16/2025 08/15/2022 Mammogram 08/05/2026 08/05/2024, 09/02, 01/30/2021, Additional history exists DTaP/Tdap/Td Vaccines (2 - Td or Tdap) 04/15/2027 04/15/2017 Zoster Vaccines (1 of 2) 2029 RSV Patients and Patients Aged 60 years or older (1 - 1-dose 75+ series) 2054 Pneumococcal Vaccine: Pediatrics (0 to 5 Years) and At-Risk Patients (6 to 49) Years) Aged Out 07/26/2021 No longer eligible based on patient's age to complete this topic HIB Vaccines Aged Out No longer eligi ble based on patient's age to complete this topic HPV Vaccines Aged Out No longer eligi ble based on patient's age to complete this topic Hepatitis A Vaccines Aged Out No long er eligible based on patient's age to complete this topic IPV Vaccines Aged Out No longer eligi ble based on patient's age to complete this topic Meningococcal Vaccine Aged Out No cecelia herbie eligible based on patient's age to complete this topic RSV under 20 months Aged Out No longe r eligible based on patient's age to complete this topic Rotavirus Vaccines Aged Out No longer eligible based on patient's age to complete this topic Procedures Procedure Name Priority Date/Time Associated Diagnosis Comments PROPHYLAXIS - ADULT Routine 06/29/2024 3 :00 PM EDT BITEWINGS - 4 RADIOGRAPHIC IMAGES Routine 06/29/2024 3:00 PM EDT PERIODIC ORAL EVALUATION - ESTABLISHED PATIENT Routine 06/29/2024 3:00 PM EDT DIAGNOSTIC - DIAGNOSTIC IMAGING - INTRAORAL - COMPREHENSIVE SERIES OF RADIOGRAPHIC IMAGES Routine 08/15/2022 12:00 AM EDT from Last 3 Months or Most Recently Relevant to Health Maintenance Insurance DENTAL - [facility] PARTIAL (MEDICAID)
[2024-12-14 09:30] LABS: Basophils Absolute Auto 0.1 X10*3/uL (0.0-0.2); Basophils Percent Auto 0.7 % (0-2); Eosinophils Absolute Auto 0.1 X10*3/uL (0.0-0.4); Eosinophils Percent Auto 1.2 % (0-4); Hematocrit 37.6 % (37.0-47.0); Hemoglobin 12.5 g/dl (12.0-16.0); Imm Gran Abs Auto 0.01 X10*3/uL (0.00-0.03); Imm Gran Pct Auto 0.1 % (0.0-0.4); Lymphocytes Absolute Auto 1.9 X10*3/uL (1.2-4.9); Lymphocytes Percent Auto 22.7 % (20-40); Mean Corpuscular HGB Conc 33.2 g/dl (31.0-35.0); Mean Corpuscular Hemoglobin 31.4 pg (27.0-33.0); Mean Corpuscular Volume 94.5 fL (80.0-98.0); Mean Platelet Volume 11.1 fL (9.4-12.3); Monocytes Absolute Auto 0.6 X10*3/uL (0.1-1.2); Monocytes Percent Auto 7.3 % (2-11); Neutrophils Absolute Auto 5.7 x10*3/uL (2.0-8.3); Platelet Count 264 X10*3/uL (160-400); Red Blood Count 3.98 X10*6/uL (4.20-5.50); Red Cell Distribution Width 12.4 % (11.0-16.0); White Blood Count 8.4 X10*3/uL (4.8-10.8)
[2024-12-14 09:37] LABS: Estimated Average Glucose 82 mg/dL; Hemoglobin A1C 85.3699 umol/L; Hemoglobin A1c % 4.5 % (<6.0); Total Hemoglobin (HGBA1C) 3279.3727 umol/L
[2024-12-14 10:11] LABS: Alanine Aminotransferase 20 U/L (0-31); Albumin Level 3.7 g/dL (3.5-5.0); Alkaline Phosphatase 61 U/L (39-117); Anion Gap 9 (12-20); Aspartate Amino Transferase 26 U/L (5-31); Bilirubin Total 0.4 mg/dL (0.0-1.0); Blood Urea Nitrogen 10 mg/dL (9-16); C Reactive Protein 1.56 mg/dL (< or = 0.50); Calcium 8.8 mg/dL (8.4-10.2); Carbon Dioxide 26 mmol/L (22-29); Chloride 109 mmol/L (96-108); Cholesterol 194 mg/dL (<200); Estimated Glomerular Filt Rate > 60; Glucose Random 71 mg/dL (60-115); HDL Cholesterol 52 mg/dL (>40); Iron 134 mcg/dL (30-160); LDL Cholesterol Calculated 122 mg/dL (<100); Percent Iron Saturation 47 % (15-50); Potassium 4.5 mmol/L (3.3-5.1); Sodium 139 mmol/L (135-145); Total Iron Binding Capacity 285 mcg/dL (228-428); Total Protein 7.4 g/dL (6.5-8.0); Triglycerides 102 mg/dL (<150); Unsaturated Iron Binding 151 ug/dL
[2024-12-14 10:35] LABS: Ferritin 145 ng/mL (10-250); Insulin 4 uU/mL (2-29); TSH reflex Free T4 2.19 uIU/mL (0.32-4.0); Vitamin D 25-OH Total 29.4 ng/mL (>30)
[2024-12-14 10:36] LABS: Folate 6.9 ng/mL (> or = 4.0); Vitamin B12 554 pg/mL (200-900)
[2024-12-17 09:44] LABS: Zinc 68 mcg/dL (60-130)
[2024-12-18 01:24] LABS: Vitamin A 72 mcg/dL (38-98)
[2024-12-23 13:49] LABS: Vitamin B1 <6 nmol/L (8-30)
== END 2024-12-14 08:30 | disposition home or self-care (01) ==
LOC: HO.LAB 08:29
PROVIDERS: PCP Nurse Practitioner Family; Visit Provider Physician Assistant Surgical
DX: E55.9 Vitamin D deficiency, unspecified (principal); I10 Essential (primary) hypertension; Z98.84 Bariatric surgery status
CPT/HCPCS: 36415; 80053; 80061; 82306; 82607; 82728; 82746; 83036; 83525; 83540; 84425; 84443; 84590; 84630; 85025; 86140

== ENCOUNTER 2024-12-16 09:54 | Outpatient (AMB) | payer OTHER, SELFPAY ==
--- NOTE | 2024-12-16 08:25 | MHC.OFFVISWM ---
VS Expanded 12/16/24 08:26 Height 5 ft 2 in Weight 154 lb 8 oz BMI 28.3 Intake Visit Reasons: TELEPHONE PO LSG 10/24/21 Allergies prochlorperazine [From Compazine] Allergy (Intermediate, Verified 12/24/23 10:35) eve HPI Comments Details: This?a?44?yo female who is s/p LSG without hiatal hernia repair on?10/24/[address] Howard. Presents for 3 year 2 month post op visit. Weight today is 154.8 pounds, with a BMI today of 28.3. No complaints of nausea, emesis, abdominal pain or reflux. Reports infrequent but normal bowel movements every 3-4 days. She does not use fiber supplements but has some at home. She was given information regarding the right BMI roberta at her last visit approximately 2 months ago. She is now following a meal plan although skipping her last shake most nights Present meal plan includes: Premier protein 1/2 scoop Another shake, 1 scoop meal 5 forks protein and 6 forks veg. 1/2 scoop (skipping) Drinkin-40 oz water daily ? Exercise routine includes: walking outside daily, not tracking calories PFSH Medical History GERD (gastroesophageal reflux disease) Patient is Rastafari COVID-19 vaccine series completed BMI 32.0-32.9,adult History of alcohol dependence BMI 33.0-33.9,adult ADHD Binge eating disorder Vitamin D deficiency Carpal tunnel syndrome Tennis elbow Arthritis Hyperlipidemia PVC (premature ventricular contraction) PRANAY (obstructive sleep apnea) Depression Anxiety BMI 35.0-35.9,adult Obesity (BMI 30-39.9) Surgical History Hx of local excision of skin lesion Hx of section Family History Father Depression Mother Hypothyroidism Diabetes Brother No problems noted. Brother No problems noted. Brother No problems noted. Brother No problems noted. Brother No problems noted. Sister No problems noted. Sister No problems noted. Sister No problems noted. Daughter No problems noted. Daughter No problems noted. Social History Household Members Other:: 2 children-oldest 16 y.o. 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 to a significant other at home: Yes Do you presently have visiting nurse or other home services: No Alcohol intake: current Alcohol intake frequency: a few times a week Patient Tobacco Use Status: Never used Tobacco service: No Current occupational status: employed Telehealth Telehealth Telehealth Platform: Telephone Location of provider rendering services: practice address Location of patient: other Patient Identification confirmed using: Name, : Yes Telehealth method: voice only Patient verbally consented to treatment: Yes Patient verbally consented to billing insurance company: Yes Patient informed of any privacy concerns related to visit: Yes Minutes spent on Phone/Video with Pt.: 10 Assessment & Plan Assessment & Plan (1) S/P laparoscopic sleeve gastrectomy: Code(s): Z98.84 - Bariatric surgery status Category: Surgical Plan: Adjust meal plan given the skipping her last shake. Premier protein 1/2 scoop Another shake, 1 scoop meal 5 forks protein and 6 forks veg. 1/2 cup berries or apple Discussed the importance of tracking calories using [employer] roberta while walking outside. She is unable to join a gym at this time. Additionally, given mild constipation, encouraged to increase her water intake which she states she will do. Encouraged to text weights weekly and with any questions or concerns. Return to clinic as scheduled.
[2024-12-16 08:26] VITALS: BMI 28.3
--- OUTSIDE RECORDS SUMMARY | 2024-12-16 10:29 | XMS_ITS | Data Portability ---
Author Organization [facility] [place], [place] Address [address] [place] [address] [place] [address] Care Team Providers Care Roping Machine Tender Name Role Phone HIREN MATTSON Referring Provider [...] 13, [address] Travis Lafleur [facility]: Cervical cord. C4-5 minimal uncovertebral [...] 13, [address] Travis Lafleur [facility]: Cervical cord. C4-5 minimal uncovertebral [...] 022 HEMALATHA Schaeffer MD, [address], [place], [address], 2 13:44:42 Procedures None recorded. Surgeries None recorded. 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 Patient TargetsNo [...] cervi annabelle spine , w/o contr ast [facility] MRI- [facility] Access ion Number : [id number] Patien t Name: Miki Linaresl Iftikhara rl Record Number : [id number] Date of : 1979 Date of Exam: 2020 Referr ing Physic rosas: Mariam Marie MD Neurol [facility] [address] [address] Exam: MR Cervic al Spine (C-) CPT 47413 Room Descri ption: [facility] Verio 3.0T HISTOR Y: Centra l pain syndro me. Modera te neck pain. TECHNI QUE: Multip lanar multis equenc e MRI of the cervic al spine withou t contra st. COMPAR [place]: No prior studie s are availa ble for compar [place] at [facility] . FINDIN GS: Subtle revers al of the cervic al lordos is withou t sublux ation. The cervic al verteb ral bodies and discs are normal in height and signal . No parasp inal edema on the sagitt al STIR images . The visual ized boiler tester ior crania l fossa struct ures and [...] ly Signed By: Travis Lafleur MD [email or web address] [facility] ([facility]) [address] [facility], [place], [address], 12/25/2021 10:26:11 Result Notes None recorded. Procedures Surgical History Date Name Laterality Status Provider Name and Address Organization Details Recorded Time 02/05/2022 DATA REVIEW completed Abel Marie MD [address] [place] [address] [place], [address], Formerly [facility] Neurology [facility] 02/05/2022 10:34:14 11/13/2021 DATA REVIEW completed Abel Marie MD [address] [place] [address] [place], [address], Formerly [facility] Neurology [facility] 11/13/2021 12:23:09 10/02/2021 DATA REVIEW completed Abel Marie MD [address] [place] [address] [place], [address], Formerly [facility] Neurology [facility] 10/02/2021 11:11:47 Imaging Results Imaging Date Name Status LastModified by Chantal kaye Details LastModified Time 10/13/2021 MRI, cervical spine, w/o contrast completed [email or web address] [facility]) [address], [place], [address], 12/25/2021 10:26:11 Procedure Notes None recorded. Medical [...] Updated DateTime 10/02/2021 157.48 cm 32.6 kg/m2 13907.44 g 12 /min [facility] 10/02/2021 09:20:32 Social History Question Answer Notes LastModified by Organizat ion Details LastModified Time Tobacco Smoking Status Never Smoker [facility] 10/02/2021 09:22:36 What Is Your Level Of Alcohol Consumption? None Information not available 10/02/2021 What Is Your Level Of Caffeine Consumption? Occasional Information not available 10/02/2021 What Is The Highest Grade Or Level Of School You Have Completed Or The Highest Degree You Have Received? [id number] Information not available 10/02/2021 Which Of Your [...] available 11/2020 09:31:49 Medical History Condition Response Depression Y Headaches Y High Blood Pressure or Hypertension Y High Cholesterol or Hyperlipidemia Y Gynecological HistoryNo gynecological history recorded. 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 Idiopathic peripheral neuropathy 14785137 G60.3 [id number] Abel Marie MD [facility] [address] [place] [address] [place] [address] 11/13/2021 12:02:22 11/13/2021 17:04:34 Idiopathic peripheral neuropathy 35048681 G60.3 [id number] Abel Marie MD [facility] [address] [place] [address] [place] [address] 02/05/2022 10:09:17 02/05/2022 10:59:19 Idiopathic peripheral neuropathy 22473498 G60.3 Health Concerns Section Related Observation LastModified by Organization Detai ls LastModified Time None Recorded Concern Status LastModified by Organization Details LastModified Time None Recorded Advance Directives Directive None Recorded Payers Encounter Date Sequence Insurance Name Policy Number Policy Li Covered Member ID Li Member ID Guarantor Name 10/02/2021 1 [facility] [employer] - TOGETHER (MEDICAID HMO) [id number] Violeta Muñiz [id number] 1 Violeta Muñiz 11/13/2021 1 [facility] - TOGETHER (MEDICAID HMO) [id number] Violeta Muñiz [id number] 1 Violeta Muñiz 02/05/2022 1 [facility] - TOGETHER (MEDICAID HMO) [id number] Violeta Muñiz [id number] 1 Violeta Muñiz Notes Date Note Type Note Provider Name and Address Organization Details Recorded Time 10/02/2021 text/html She presents for initial neurology consultation for assessment and management of onset a couple of years ago, ~end of 8293-0390, of worsening memory, episodic dizziness, trouble, feeling [...] 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 Abel Marie MD [address] [place] [address] [place], [address], [facility] 02/05/2022 10:37:05 OBGyn Episode No OBEpisode recorded.
--- OUTSIDE RECORDS SUMMARY | 2024-12-16 10:29 | XMS_ITS | Encounter Summary ---
Author Organization [employer] Address [address] [facility] 7 [place] [address] Care Team Providers Care Warehouse Processor Name Role Phone Unavailable Primary Care Provider Unavailabl e Encounter Details Date Type Department Care Team (Latest Contact Info) Description 08/20/2022 Abstract [facility] CONVERSIONS Dental, Provider, DDS Social History [...] Description 01/04/2025 4:00 PM EST Office Visit [facility] [address] [place], [place] [phone] Winnie Porter [address] [place], [place] [phone] documented as of this encounter Visit Diagnoses Not on filedocumented in this encounter
--- OUTSIDE RECORDS SUMMARY | 2024-12-16 10:29 | XMS_ITS | Clinical Summary ---
Author Organization [employer] Address [address] [facility] 7t [place] [address] Care Team Providers Care Children'S Minister Name Role Phone Unavailable Primary Care Provider [...] Description 01/04/2025 4:00 PM EST Office Visit [facility] [address] [place] [address] Winnie Porter [address] [place], [place] [phone] Health Maintenance Due Date Last Done Comments [...] ESTABLISHED PATIENT Routine 06/29/2024 3:00 PM EDT INTRAORAL - COMPLETE SERIES OF RADIOGRAPHIC IMAGES Routine 08/15/2022 12:00 AM EDT from Last 3 Months or Most Recently Relevant to Health Maintenance Insurance DENTAL - HSN PARTIAL (MEDICAID)
== END 2024-12-16 09:56 | disposition home or self-care (01) ==
LOC: HO.HBS 09:54
PROVIDERS: PCP Nurse Practitioner Family; Visit Provider Physician Assistant Surgical
DX: E66.3 Overweight (principal); Z68.28 Body mass index [BMI] 28.0-28.9, adult; Z90.3 Acquired absence of stomach [part of]; Z98.84 Bariatric surgery status
CPT/HCPCS: 98012

== ENCOUNTER → 2024-12-16 09:54 | Outpatient (BNVA) | payer OTHER, SELFPAY | PROVIDERS: PCP Nurse Practitioner Family; Visit Provider Physician Assistant Surgical | DX: Z98.84 Bariatric surgery status (principal); I10 Essential (primary) hypertension; E55.9 Vitamin D deficiency, unspecified ==

== ENCOUNTER 2025-03-07 14:24 | Outpatient (AMB) | payer OTHER, SELFPAY ==
[2025-03-07 13:52] VITALS: BMI 26.4
--- NOTE | 2025-03-07 13:52 | A.OFFVIS_ITS ---
VS Expanded 03/07/25 13:52 Height 5 ft 2 in Weight 144 lb 8 oz BMI 26.4 Intake Visit Reasons: TELEPHONE PO LSG 10/24/21 Swedish Masseuse Required: No Allergies prochlorperazine [From Compazine] Allergy (Intermediate, Verified 12/24/23 10:35) jittery Medication List - Last Reconciled 03/07/25 by WARD Herman amitriptyline 25 mg PO BEDTIME clotrimazole 1% 1 appl topical BID dextroamphetamine-amphetamine 20 mg ER 20 mg PO QAM escitalopram oxalate (Lexapro) 20 mg PO DAILY lorazepam 0.5 mg PO DAILY PRN melatonin 5 mg PO BEDTIME thiamine HCl (vitamin B1) 100 mg PO DAILY trazodone 100 mg PO DAILY HPI Comments Details: This?a?45?yo female who is s/p LSG without hiatal hernia repair on?10/24/[address] Howard. Presents for 3 year 5 month post op visit. Weight today is 144.8 pounds, with a BMI today of 26.4. No complaints of nausea, emesis, abdominal pain or reflux. Reports infrequent but normal bowel movements every 3-4 days. She does not use fiber supplements but has some at home. She states she is trying to stay on track. often forgets MVI. Present meal plan includes: Premier protein 1/2 scoop Another shake, 1 scoop meal 5 forks protein and 6 forks veg. 1/2 cup berries or apple Drinkin-40 oz water daily ? Exercise routine includes: walking outside daily 3-4 times per week, not tracking calories or distance, 20 min [facility] Medical History GERD (gastroesophageal reflux disease) Patient is Quaker COVID-19 vaccine series completed BMI 32.0-32.9,adult History of alcohol dependence BMI 33.0-33.9,adult ADHD Binge eating disorder Vitamin D deficiency Carpal tunnel syndrome Tennis elbow Arthritis Hyperlipidemia PVC (premature ventricular contraction) PRANAY (obstructive sleep apnea) Depression Anxiety BMI 35.0-35.9,adult Obesity (BMI 30-39.9) Surgical History Hx of local excision of skin lesion Hx of section Family History Father Depression Mother Hypothyroidism Diabetes Brother No problems noted. Brother No problems noted. Brother No problems noted. Brother No problems noted. Brother No problems noted. Sister No problems noted. Sister No problems noted. Sister No problems noted. Daughter No problems noted. Daughter No problems noted. Social History Household Members Other:: 2 children-oldest 16 y.o. Are you a primary field care coordinator to a significant other at home: Yes Do you presently have visiting nurse or other home services: No Alcohol intake: current Alcohol intake frequency: a few times a week Patient Tobacco Use Status: Never used Tobacco service: No Current occupational status: employed Telehealth Telehealth Telehealth Platform: Telephone Location of provider rendering services: practice address Location of patient: address on file Patient Identification confirmed using: Name, : Yes Telehealth method: voice only Patient verbally consented to treatment: Yes Patient verbally consented to billing insurance company: Yes Patient informed of any privacy concerns related to visit: Yes Minutes spent on Phone/Video with Pt.: 15 Assessment & Plan Assessment & Plan (1) S/P laparoscopic sleeve gastrectomy: Code(s): Z98.84 - Bariatric surgery status Category: Surgical Plan: Overall, patient is doing fair. She was reminded to take her multivitamin. She was encouraged to track calories when she is walking outside. Discussed the importance of doing body weight exercises as she is unable to afford the gym. Discussed YouTube as an option. She will switch her shakes to doing 1 scoop in the morning and half scoop at mid day. She was encouraged to continue to text with any questions or concerns in follow-up in the office in 3 months.
--- OUTSIDE RECORDS SUMMARY | 2025-03-07 15:41 | XMS_ITS | Encounter Summary ---
Author Organization [employer] Address [address] [facility] 7 [place] [address] Care Team Providers Care Metal Spraying Machine Operator Name Role Phone Unavailable Primary Care Provider Unavailabl e Encounter Details Date Type Department Care Team (Latest Contact Info) Description 08/20/2022 Abstract [facility] CONVERSIONS Dental, Provider, DDS Social History Tobacco [...] Care Team (Late st Contact Info) Description 07/12/2025 9:00 AM EDT Office Visit [facility] [address] [place], [place] [phone] Winnie Porter [address] [place], [place] [phone] documented as of this encounter Visit Diagnoses Not on filedocumented in this encounter
--- OUTSIDE RECORDS SUMMARY | 2025-03-07 15:41 | XMS_ITS | Data Portability ---
Author Organization [facility] [employer] [place], [employer] Address [address] [place] [address] [place] [address] Care Team Providers Care Field Research Assistant Name Role Phone HIREN MATTSON Referring Provider [...] 13, [address] Travis Lafleur [facility]: Cervical cord. C4-5 minimal uncovertebral [...] off on suggesting such additional electrodiagnostic studies. PLAN Violeta Muñiz November 13, [address] Maya Schaeffer, surgery, for skin biopsy of right lower extremity to assess for small fiber neuropathy. Follow-up afterwards to discuss results. Follow-up afterwards leeann Not available 11/13/2021 12:43:33 02/05/2022 02/05/2022 IMPRESSION: [...] 13, [address] Travis Lafleur [facility]: Cervical cord. C4-5 minimal uncovertebral [...] Muñiz February 05, 2022 Follow-up as needed ossen Not available 02/05/2022 10:36:44 Plan of Treatment Reminders Order Date Submit Date Provider Last Modified By Organization Details Last Modified Time Details Appointments None recorded. Lab None recorded. Referral surgery center referral - skin biopsy of right lower extremity to assess for small fiber neuropathy 2021 022 HEMALATHA Schaeffer MD, [address], [place], [address], 13:44:42 Procedures None recorded. Surgeries None recorded. 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 Patient TargetsNo [...] issue. [email or web address] Not available 11/13/2021 12:42:42 02/05/2022 [id number] PAST DISCUSSION October 02, 2021: Of note, [...] cervi annabelle spine , w/o contr ast [facility] MRI- [facility] Access ion Number : [id number] Patien t Name: Randall llanes, Violeta Medica l Record Number : [id number] Date of : 1979 Date of Exam: 2020 Referr ing Physic rosas: Mariam Marie MD Neurol [facility] [address] [address] Exam: MR Cervic al Spine (C-) CPT 32755 Room Descri ption: [facility] Verio 3.0T HISTOR Y: Centra l pain syndro me. Modera te neck pain. TECHNI QUE: Multip lanar multis equenc e MRI of the cervic al spine withou t contra st. COMPAR [place]: No prior studie s are availa ble for compar [place] at [facility] . FINDIN GS: Subtle revers al of the cervic al lordos is withou t sublux ation. The cervic al verteb ral bodies and discs are normal in height and signal . No parasp inal edema on the sagitt al STIR images . The visual ized de alcholizer ior crania l fossa struct ures and [...] ly Signed By: Travis Lafleur MD [email or web address] [facility] ([facility]) [address] [facility], [place], [address], 12/25/2021 10:26:11 Result Notes None recorded. Procedures Surgical History Date Name Laterality Status Provider Name and Address Organization Details Recorded Time 02/05/2022 DATA REVIEW completed Abel Marie MD [address] [place] [address] [place], [address], [facility] Neurology [facility] 02/05/2022 10:34:14 11/13/2021 DATA REVIEW completed Abel Marie MD [address] [place] [address] [place], [address], [facility] Neurology [facility] 11/13/2021 12:23:09 10/02/2021 DATA REVIEW completed Abel Marie MD [address] [place] [address] [place], [address], [facility] Neurology [facility] 10/02/2021 11:11:47 Imaging Results Imaging Date Name Status LastModified by Organiz ation Details LastModified Time 10/13/2021 MRI, cervical spine, w/o contrast completed [email or web address] [facility] ([facility]) [address], [place], [address], 12/25/2021 10:26:11 Procedure Notes None recorded. Medical [...] Updated DateTime 10/02/2021 157.48 cm 32.6 kg/m2 15360.44 g 12 /min [facility] 10/02/2021 09:20:32 Social History Question Answer Notes LastModified by Organizat ion Details LastModified Time Tobacco Smoking Status Never Smoker [facility] 10/02/2021 09:22:36 What Is Your Level Of Alcohol Consumption? None Information not available 10/02/2021 What Is Your Level Of Caffeine Consumption? Occasional Information not available 10/02/2021 What Is The Highest Grade Or Level Of School You Have Completed Or The Highest Degree You Have Received? [id number] Information not available 10/02/2021 Which Of Your [...] Condition Response Depression Y Headaches Y High Cholesterol or Hyperlipidemia Y High Blood Pressure or Hypertension Y Gynecological HistoryNo gynecological history recorded. Obstetrics History GPAL:G 0 P 0 0 0 0 Past Encounters Encounter ID Performer Location Encounter Start Date Encounter Closed Date Diagnosis/Indication Diagnosis SNOMED-CT Code Diagnosis ICD10 Code Diagnosis Note [id number] Abel Marie MD [facility] [address] [place] [address] [place] [address] 10/02/2021 08:48:18 10/02/2021 11:22:34 Central pain syndrome 289858322 G89.0 Idiopathic syringomyelia 330491642 G95.0 Idiopathic peripheral neuropathy 61133842 G60.3 [id number] Abel Marie MD [facility] [address] [place] [address] [place] [address] 11/13/2021 12:02:22 11/13/2021 17:04:34 Idiopathic peripheral neuropathy 07236165 G60.3 [id number] Abel Marie MD [facility] [address] [place] [address] [place] [address] 02/05/2022 10:09:17 02/05/2022 10:59:19 Idiopathic peripheral neuropathy 80411570 G60.3 Health Concerns Section Related Observation LastModified by Organization Detai ls LastModified Time None Recorded Concern Status LastModified by Organization Details LastModified Time None Recorded Advance Directives Directive None Recorded Payers Encounter Date Sequence Insurance Name Policy Number Policy Li Covered Member ID Li Member ID Guarantor Name 10/02/2021 1 [facility] [employer] - TOGETHER (MEDICAID HMO) [id number] Violeta Muñiz [id number] 1 Violeta Muñiz 11/13/2021 1 [facility] [employer] - TOGETHER (MEDICAID HMO) [id number] Violeta Muñiz [id number] 1 Violeta Muñiz 02/05/2022 1 [facility] [employer] - TOGETHER (MEDICAID HMO) [id number] Violeta Muñiz [id number] 1 Violeta Muñiz Notes Date Note Type Note Provider Name and Address Organization Details Recorded Time 10/02/2021 text/html She presents for initial neurology consultation for assessment and management of onset a couple of years ago, ~end of 9608-8002, of worsening memory, episodic dizziness, trouble, feeling [...] began. 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 Abel Marie MD [address] [place] [address] [place], [address], [facility] Neurology [facility] 10/02/2021 11:30:13 11/13/2021 text/html Follow up of ons et a couple of years ago, ~end of 9044-8062, of worsening memory, episodic dizziness, trouble, feeling [...] began. 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 Abel Marie MD [address] [place] [address] [place], [address], [facility] Neurology [facility] 11/13/2021 12:47:13 02/05/2022 text/html Follow up of ons et a couple of years ago, ~end of 1185-9009, of worsening memory, episodic dizziness, trouble, feeling [...] began. 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 Abel Marie MD [address] [place] [address] [place], [address], [facility] Neurology [facility] 02/05/2022 10:37:05 OBGyn Episode No OBEpisode recorded.
--- OUTSIDE RECORDS SUMMARY | 2025-03-07 15:41 | XMS_ITS | Clinical Summary ---
Author Organization [employer] Address [address] [facility] 7 [place] [address] Care Team Providers Care Tooling Inspector Name Role Phone Unavailable Primary Care Provider Unavailabl e Allergies Active Allergy Reactions Criticality Noted Date Comments Nabumetone 11/06/2020 Stomach pain Medications amphetamine-dex troamphetamine XR (Adderall XR) 10 MG 24 hr capsule Active escitalopram (Lexapro) 10 MG tablet TAKE 1 TABLET BY MOUTH ONCE DAILY DIRECTED 3 Active hyoscyamine (Levsin) 0.125 MG SL tablet DISSOLVE 1 TABLET UNDER THE TONGUE AND ALLOW TO DISSOLVE THREE TIMES DAILY NEEDED 2 Active Jolessa 0.15-0.03 MG tablet Take 1 tablet by mouth in the morning. 3 Active LORazepam (Ativan) 0.5 MG tablet TAKE 1 TABLET BY MOUTH ONCE DAILY NEEDED FOR ANXIETY(DO NOT DRIVE AND OPERATE MACHINERY) 3 Active traZODone (Desyrel) 50 MG tablet Take 50 mg by mouth at bedtime. 3 Active dilTIAZem (Cardizem) 30 MG immediate release tablet Take 30 mg by mouth 4 times daily. Active amitriptyline (Elavil) 10 MG tablet Take by mouth at bedtime. Active buPROPion XL (Wellbutrin XL) 150 MG 24 hr tablet Take 150 mg by mouth in the morning. Active nystatin (Mycostatin) ointment Apply topically 3 times daily. For intraoral application.Ap ply on the palate 3 times daily for 15 days 1 g 5 Active Encounters Date Type Department Care Team Description 01/18/2025 9:00 AM EDT Office Visit [facility] [address] [place] [address] [phone] Winnie Porter 01/05/2025 Telephone [facility] [address] [place] [phone] Devi clarification medication use; Dr. Geovanna Montana on medication 01/04/2025 4:00 PM EST Office Visit [facility] [address] [place] [phone] Charlotte Winnie 12/28/2024 Travel from Last 3 Months Social History Tobacco Use Types Packs/Day Years [...] Sign Reading Time Taken Comments Blood Pressure 110/64 01/18/2025 8:57 AM EDT Pulse 94 01/18/2025 8:57 AM EDT Temperature - - Respiratory Rate - - Oxygen Saturation - - Inhaled Oxygen Concentration - - Weight - - Height - - Body Mass Index - - Plan of Treatment Upcoming Encounters Date Type Department Care Team (Late st Contact Info) Description 07/12/2025 9:00 AM EDT Office Visit [facility] [address] [place] [phone] Charlotte Winnie [address] [place] [phone] Health Maintenance Due Date Last Done Comments [...] , 07/16/2022, 07/26/2021, Additional history exists Dental X-Ray: Bitewings 06/30/2025 06/29/20, 05/06/2023, 08/15/2022 Dental Oral Exam 07/08/2025 01/04/2025, , 05/06/2023, Additional history exists Dental Prophylaxis 07/08/2025 01/04/2025, 0 06/29/2024, 05/06/2023, Additional history exists Dental X-Ray: Full Mouth 08/16/2025 08/15/2022 Tobacco Screening 01/18/2026 01/18/2025 Mammogram 08/05/2026 08/05/2024, 10/0 02/2024, 09/17/2022, Additional history exists DTaP/Tdap/Td Vaccines (2 - [...] Procedure Name Priority Date/Time Associated Diagnosis Comments NO CHARGE PROCEDURE Routine 01/18/2025 9 :00 AM EDT CASE PRESENTATION, DETAILED AND EXTENSIVE TREATMENT PLANNING Routine 01/04/2025 4:00 PM EST PROPHYLAXIS - ADULT Routine 01/04/2025 4 :00 PM EST PERIODIC ORAL EVALUATION - ESTABLISHED PATIENT Routine 01/04/2025 4:00 PM EST BITEWINGS - 4 RADIOGRAPHIC IMAGES Routine 06/29/2024 3:00 PM EDT INTRAORAL - COMPLETE SERIES OF RADIOGRAPHIC IMAGES Routine 08/15/2022 12:00 AM EDT from Last 3 Months or Most Recently Relevant to Health Maintenance Insurance DENTAL - [facility] PARTIAL (MEDICAID)
--- OUTSIDE RECORDS SUMMARY | 2025-03-07 15:41 | XMS_ITS | Encounter Summary ---
Author Organization [employer] Address [address] [place] [address] 7 [place] [address] Care Team Providers Care Tank Worker Name Role Phone Unavailable Primary Care Provider Unavailabl e Reason for Visit * Reason Onset Date Comments Dr. Austin clarification medication use 01/05/2025 Dr. Geovanna Montana on medication 01/05/2025 Encounter Details Date Type Department Care Team (Late st Contact Info) Description 01/05/2025 Telephone [facility] [address], [place] [phone] Jonh York BDS [address], [place] [phone] Dr. Austin clarification medication use; Dr. Geovanna Montana on medication Social History Tobacco Use Types Packs/Day Years Used Date Smoking Tobacco: Never Smokeless Tobacco: Never Comments Unknown Sex and Gender Information Value Date Recorded Sex Assigned at Female 09/01/2022 10:15 AM EDT Legal Sex Female 10:15 AM EDT Gender Identity Female 05/19/2023 12:22 PM EDT Sexual Orientation Choose not to disclose 2021 10:15 AM EDT documented as of this encounter Miscellaneous Notes * Telephone Encounter - Natalya Adame - 01/10/2025 3:33 PM EDT 2nd phone call made from [facility] in [place]. Pharmacy needs clarification on use of medication intraorally. They called back on 01/05. Please reach out for clarification of use of medication. Patient has been unable to have medication dispensed until clarification from provider * Telephone Encounter - Natalya Adame - 01/05/2025 8:39 AM EST Message for Dr. Geovanna [facility] in [place] called to clarify use of medication. Pharmacy states that Nystatin the script that was sent was for topical use and is not normally used in mouth. They do have a suspension that it can be replaced for. Pharmacy wanted to confirm whether it is the ointment or if it should be changed to suspension documented in this encounter Plan of Treatment Upcoming Encounters Date Type Department Care Team (Late st Contact Info) Description 07/12/2025 9:00 AM EDT Office Visit [facility] [address] [place] [address] [phone] Winnie Porter [address], [place] [phone] documented as of this encounter Visit Diagnoses Not on filedocumented in this encounter
--- OUTSIDE RECORDS SUMMARY | 2025-03-07 15:41 | XMS_ITS | Continuity of Care Document ---
Author Organization [facility] Address [address] [place] [id number] Social History Not on File Plan of Treatment Not on file
== END 2025-03-07 14:35 | disposition home or self-care (01) ==
LOC: HO.HBS 14:24
PROVIDERS: PCP Nurse Practitioner Family; Visit Provider Physician Assistant Surgical
DX: E66.3 Overweight (principal); Z68.26 Body mass index [BMI] 26.0-26.9, adult; Z90.3 Acquired absence of stomach [part of]; Z98.84 Bariatric surgery status
CPT/HCPCS: 98012